=== PATIENT | female | born 1985 | race Caucasian/White ===

== ENCOUNTER 2021-02-08 12:32 | Emergency (ER) | payer SELFPAY ==
--- OUTSIDE RECORDS SUMMARY | 2021-02-08 12:35 | XMS REPORT | Continuity of Care Document ---
:1985 Author Organization [facility] t Address [address] [place] [address] Care Team Providers Name Role Phone Neftaly REYES Attending Clinician Payers Payer Name Policy Type Policy Number Effective Date Expiration Date S ource Problems Condition Condition Condition Status Onset Resolution Last Treating Co mments Source Name Details Category Date Date Treatment Clinician Date Back pain Back pain Disease Active Nelson ris 3-04 Health 00:00: 00 Weight Weight Disease Active Maria loss loss 3-04 Health 00:00: 00 FOOT Diagnosis Active 2012-03-18 Mem oria INJURY 5-26 11:14:00 l FOOT 01:00: Leobardo INJURY 00 Active 03/09/2012 [facility] TOOTH PAIN Diagnosis Active 2010-102012-05-27 Memoria 2-16 15:43:00 l TOOTH 12:00: [place] PAIN 00 Active 09/29/2011 [facility] D&C - Problem Active 2012-03-11 Memor ia Dilatation 08:52:33 l and D&C - [place] curettage Dilatation and curettage Active Problem 03/11/2012 [facility] Vaginal Problem Active 2012-03-11 Jairo [place] bleeding 08:52:33 l Vaginal [place] bleeding Active Problem 03/11/2012 [facility] Allergies, Adverse Reactions, Alerts Allergy Allergy Status Severity Reaction(s) Onset Inactive Treating Comm ents Source Name Type Date Date Clinician No Known DA Active [facility] Allergie 7-12 Clear s 00:00: Storm 00 [facility] Social History Social Habit Start Date Stop Date Quantity Comments Source History of tobacco Cigarette Smoker [facility] use Sex Assigned At [facility] alth Cigarettes smoked 2014-12-16 2014-12-16 [facility] current (pack per 00:00:00 00:00:00 day) - Reported Alcohol intake 2014-12-16 2014-12-16 Current drinker of [employer] 00:00:00 00:00:00 alcohol (finding) Alcohol Comment 2014-12-16 2014-12-16 occasional [facility] 00:00:00 00:00:00 Smoking Status Start Date Stop Date Source Current every day smoker 2014-12-16 00:00:00 [facility] Medications Ordered Filled Start Stop Current Ordering Indication Dosage Frequency Signature Comments Components Source Medication Medication Date Date Medication? Clinician (SIG) Name Name [place] 5/325 Yes George 1-2 tab, Memoria oral tablet - Michael Carnes PO, Q6H, l 07:47: PRN, 20 [place] 49 tab, for pain, Substituti on Allowed, Maintenanc e, TAB naproxen Yes George 500 mg, 1 Me moria 500 mg oral 03-09 Michael Carnes tab, PO, l tablet 07:47: BID, PRN, Freddy n 41 20 tab, for pain, Substituti on Allowed, with food, TABwith food acetaminoph No George 1 tab, Me moria en-hydrocod 03-09 Micheal Carnes Route: PO, l one 325 07:16: ONCE, [place] mg-5 mg 00 STAT, oral tablet Start date: 03/09/12 2:16:00, Stop date: 03/09/12 2:16:00 [place] 5/325 2010-10 Yes Nadim B 1-2 tab, Memoria oral tablet 2-19 Rastafarian PO, Q4-6H, l 04:54: PRN, 15 [place] 22 tab, Pain, Substituti on Allowed, Maintenanc e penicillin 2010-10 Yes Nadim B 500 mg, 1 Memoria V potassium 2-19 Rastafarian tab, PO, l 500 mg oral 04:52: BID, 14 Her bronson tablet 20 tab, Substituti on Allowed Vital Signs Vital Name Observation Time Observation Value Comments Source Height 2012-03-09 06:53:00 162.56 cm [facility] [place] Weight 2012-03-09 06:53:00 [facility] Temperature Oral (F) 2011-10-02 05:06:00 98.9 F [facility] [place] Respitory Rate 2011-10-02 05:06:00 Memori al [place] Systolic (mm Hg) 2011-10-02 05:06:00 Jairo rial [place] Diastolic (mm Hg) 2011-10-02 05:06:00 Mem orial [place] Heart Rate 2011-10-02 05:06:00 [facility] [place] Height 2011-10-02 03:33:00 162.56 cm [facility] [place] Weight 2011-10-02 03:33:00 [facility] [place] Temperature Oral (F) 2011-10-02 03:33:00 98.9 F [facility] [place] Respitory Rate 2011-10-02 03:33:00 Memori al [place] Heart Rate 2011-10-02 03:33:00 [facility] [place] Diastolic (mm Hg) 2011-10-02 03:33:00 Mem orial [place] Systolic (mm Hg) 2011-10-02 03:33:00 Jairo rial [place] Procedures This patient has no known procedures. Plan of Care Planned Activity Planned Date Details Comments Source Future Scheduled Test 2021-07-15 00:00:00 IMM Influenza [facility] Seasonal Jul to December (>/= 19 yrs) [code = IMM Influenza Seasonal Jul to December (>/= 19 yrs)] Future Scheduled Test 2016-02-11 00:00:00 Screening for [facility] malignant neoplasm of cervix (procedure) [code = 125488891] Future Scheduled Test 2016-02-11 00:00:00 Screening for [facility] malignant neoplasm of cervix (procedure) [code = 486222985] Future Scheduled Test 2002 00:00:00 COVID-19 Vaccine (1) [facility] [code = COVID-19 Vaccine (1)] Encounters Start End Encounter Admission Attending Care Care Encounter Source Date/Time Date/Time Type Type Clinicians Facility Department ID 2019-06-24 2019-06-24 Emergency [facility] [id number] 14:08:42 19:14:00 [facility] [id number] [facility] [id number] [facility] [phone] [address] ([facility]) Results Test Description Test Time Test Comments Results Result [facility] e Comments - CT C-SPINE W/O 2019-11-29 Name: MANDA SILVESTRE CONT 23:29:00 [facility] [place] : 1985 Age/S: 34 / F [address] [place] [address] Unit #: [id number] Loc: [place] [address] Phys: Laura Bedolla Acct: [id number] Dis Date: Status: REG ER PHONE #: [phone] Exam Date: 11/29/20192258 FAX #: [phone] Reason: fall down 12 steps, head injury, +EtOH EXAMS: CPT CODE: [id number] CT C-SPINE W/O CONT 11352 CT cervical spine without contrast dated 11/29/2019 INDICATION: Posttraumatic pain. Fell down 12 steps. COMPARISON: None. TECHNIQUE: A CT of the cervical spine was performed using thin slice noncontrast axial images with subsequent sagittal and coronal reconstruction. CT imaging performed at this location utilizes radiation dose optimization techniques which include one or more of the followin) Automated exposure control; 2) Adjustment of mA and/or kV; 3) Use of iterative reconstructive technique. CT radiation dose DLP (mGy-cm): 256. FINDINGS: The CT images of the cervical spine demonstrate no evidence of acute cervical vertebral fracture. Cervical alignment, vertebral body height and intervertebral disc space height are maintained. No significant central canal or foraminal narrowing is identified. There is no evidence of cervical cord compression. No significant prevertebral soft tissue swelling or paravertebral hematoma formation is identified. IMPRESSION: 1. No CT evidence of acute cervical vertebral fracture or malalignment. SL: 131 at 2329 Reported and signed by: Clif Ji M.D. CC: Laura JAIME Technologist:RT Augusto(R)(CT) CTDI: DLP: Trnscb Date/Time: 11/29/2019 (6889) t.SDR.DMM Orig Print D/T: S: 11/29/2019 (9740) PAGE 1 Signed Report - CT HEAD/BRAIN 2019-11-29 Name: MANDA SILVESTRE W/O CONT 23:26:00 [facility] [place] : 1985 Age/S: 34 / F [address] [place] [address] Unit #: [id number] Loc: [place] [address] Phys: Laura Bedolla Acct: [id number] Dis Date: Status: REG ER PHONE #: [phone] Exam Date: 11/29/20195 FAX #: [phone] Reason: fall down 12 steps, head injury, +EtOH EXAMS: CPT CODE: [id number] CT HEAD/BRAIN W/O CONT 57553 CT HEAD WITHOUT CONTRAST DATED 11/29/2019. INDICATION: Posttraumatic pain. Fall down 12 steps with head injury. COMPARISON: CT head dated 06/07/2009. A CT of the head was performed using thin slice noncontrast axial images with subsequent sagittal and coronal reconstruction. CT imaging performed at this location utilizes radiation dose optimization techniques which include one or more of the followin) Automated exposure control; 2) Adjustment of mA and/or kV; 3) Use of iterative reconstructive technique. CT radiation dose DLP (mGy-cm): 419. FINDINGS: Examination of the intracranial structures reveals no acute abnormal areas of increased or decreased density. Fisher-white differentiation appears preserved. The ventricular system is normal in size and configuration without midline shift. No intra or extra-axial masses or fluid collections are identified. There is no CT evidence of acute intracranial hemorrhage. No acute CT abnormalities of the calvarium are detected. Evidence of a laceration of the right parietal scalp is identified and note is made of soft tissue swelling left posterior parietal scalp. There is no evidence of underlying skull fracture. The left maxillary sinus is completely opacified and expanded with medial displacement and thinning of the medial maxillary sinus wall. The remainder of the paranasal sinuses and mastoid sinuses appear clear of acute disease. Chronic mucosal inflammatory changes are noted in the left ethmoid sinus. IMPRESSION: 1. No acute intracranial abnormalities are detected. There is no CT evidence of acute intracranial ischemia, acute intracranial hemorrhage or intracranial mass. 2. Complete opacification and expansion of the left maxillary sinus is new when compared to the prior CT of 06/07/2009 and is concerning for mucocele. SL: 131 PAGE 1 Signed Report (CONTINUED) Name: MANDA SILVESTRE [facility] [place] : 1985 Age/S: 34 / F [address] [place] [address] Bl Unit #: [id number] Loc: [place] [address] Phys: Laura Bedolla Acct: [id number] Dis Date: Status: REG ER PHONE #: [phone] Exam Date: 11/29/2019 2259 FAX #: [phone] Reason: fall down 12 steps, head injury, +EtOH EXAMS: CPT CODE: [id number] CT HEAD/BRAIN W/O CONT 90505 <Continued> at 2326 Reported and signed by: Clif Ji M.D. CC: Laura JAIME Technologist:oRberto Adler, RT(R)(CT) CTDI: DLP: Trnscb Date/Time: 11/29/2019 (2325) t.SDR.DMM Orig Print D/T: S: 11/29/2019 (2328) PAGE 2 Signed Report TROPONIN-I 2019-11-12 17:17:00 Test Item Value Reference Range Interpretation Comme nts TROPONIN-I (test code = < 0.015 ng/mL 0.000-0.045 N Neg ative: <= 0.045 TROPI) Positive: >= 0.046 Correlation wit h serial results, other cardiac m arkers andclinical findings is nec essary to determine the clinicalsignifi cance of this result. Results using different methodologies s hould not be comparedto one another as quantitative re sults may vary by method. - XR CHEST 2 [id number] 17:02:00 FAX: Isidra Horn NP [phone] [place]: St: PRE [facility] [place] [facility] 1985 Age/S: 34/F [address] [place] [address] Unit#: [id number] Loc: [place] [address] Phys: Isidra Horn NP Acct: [id number] Dis Date: Status: PRE ER PHONE #: [phone] Exam Date: 11/12/2019 1654 FAX #: [phone] Reason: chest pain EXAMS: CPT CODE: [id number] XR CHEST 2 V 54157 Clinical Indication: Chest pain. Comparison: 08/26/2018. Impression: Chest, 2 views. Lungs are clear. No consolidation, pleural effusion, or pneumothorax. Cardiomediastinal silhouette is unremarkable. No acute osseous abnormality. SL: [id number] at 1702 Reported and signed by: Mitch Gallo M.D. CC: Isidra Horn NP Technologist: RT Tanvi(Sergio) Trnscrd Date/Time/By: 11/12/2019 (1701) : By: [email or web address] Orig Print D/T: S: 11/12/2019 (1704) PAGE 1 Signed Report- CT ABD PELVIS W/O [id number] 23:02:00 Name: MANDA SILVESTRE [facility] [place] : 1985 Age/S: 34 / F [address] [place] [address] Unit #: [id number] Loc: [place], [place] Phys: Noel Hudson MD Acct: [id number] Dis Date: Status: REG ER PHONE #: [phone] Exam Date: 10/23/2019 2245 FAX #: [phone] Reason: left flank pain, evaluate for kidney stones EXAMS: CPTCODE: [id number] CT ABD PELVIS W/O CONT 23485 STUDY: - CT ABD PELVIS W/O CONT 10/23/2019 8:51 PM Ordering Physician: Noel Hudson MD Patient Name: MANDA SILVESTRE MR: [id number] : 1985; Age: 34 years y/o Female Clinical Indication: left flank pain, evaluate for kidney stones Comparison: 06/25/2019 TECHNIQUE: Multiple contiguous noncontrast transaxial CT images were obtained through the abdomen and pelvis. Sagittal and coronal reformatted images were prepared. CT imaging performed at this location utilizes radiation dose optimization techniques which include one or more of the following: -Automated exposure control -Adjustment of the mA and/or kV according to patient size -Use of iterative reconstruction technique CT Radiation Dose DLP: 509.22 mGy-cm CT ABDOMEN AND PELVIS WITHOUT CONTRAST: VISUALIZED LUNG BASES: No significant abnormality. BOWEL GAS: Mild constipation. APPENDIX: The appendix is not identified with certainty, but no pericecal inflammation is appreciated. STOMACH: Normal for degree of distention. PERITONEUM AND MESENTERY: Free Air: No evidence of pneumoperitoneum. Free Fluid: No evidence of significant free fluid, loculated fluid, peripherally enhancing abscess, or hemorrhage. Mesenteric and peritoneal fat: Normal without focal lesion or inflammation. LYMPH NODES: Scattered subcentimeter central mesenteric and retroperitoneal lymph nodes without lymphadenopathy or mass. VASCULAR: Abdominal Aorta: Normal caliber nonenhanced abdominal aorta. PAGE 1 Signed Report (CONTINUED) Name: MANDA SILVESTRE [facility] : 1985 Age/S: 34 / F [address] [place] [address] Unit #: [id number] Loc: [place] [address] Phys: Noel Hudson MD Acct: [id number] Dis Date: Status: REG ER PHONE #: [phone] Exam Date: 10/23/2019 2245 FAX #: [phone] Reason: left flank pain, evaluate for kidney stones EXAMS: CPT CODE: [id number] CT ABD PELVIS W/O CONT 91446 <Continued> IVC: Normal caliber nonenhanced. ABDOMINAL ORGANS: Liver: Normal nonenhanced without discrete lesion. Gallbladder: Contracted and mildly appropriately thick-walled without calcified gallstones or inflammation. Biliary Tree: Normal without dilatation. Kidneys: Normal size nonenhanced kidneys with punctate nonobstructingcalculi versus artifact in both kidneys. No ureterolithiasis, hydronephrosis, or suspicious focal lesion in either kidney. Adrenal Glands: Normal nonenhanced without discrete lesion . Pancreas: Normal nonenhanced without discrete lesion. Spleen: Normal nonenhanced without discrete lesion. PELVIC ORGANS: Urinary bladder: Under distended and thick-walled associated with mild adjacent stranding. Reproductive organs: Normal nonenhanced uterus and adnexa. SOFT TISSUES: Small fat-containing periumbilical hernia and mild rectus dehiscence. Small bilateral inguinal lymph nodes. OSSEOUS STRUCTURES: No fracture, dislocation, or suspicious focal osseous lesion. IMPRESSION: Punctate nonobstructing bilateral nephrolithiasis versus artifact. No ureterolithiasis, hydronephrosis, inflammation, or focal renal lesion. Under distended mildly thick-walled urinary bladder with mild adjacent stranding. Clinical correlation is required to exclude cystitis. PAGE 2 Signed Report (CONTINUED) Name: MANDA SILVESTRE [facility] : 1985 Age/S: 34 / F [address] [place] [address] Unit #: [id number] Loc: [place] [address] Phys: Noel Hudson MD Acct: [id number] Dis Date: Status: REG ER PHONE #: [phone] Exam Date: 10/23/2019 2245 FAX #: [phone] Reason: left flank pain, evaluate for kidney stones EXAMS: CPT CODE: [id number] CT ABD PELVIS W/O CONT 12242 <Continued> Small fat-containing periumbilical hernia and mild rectus dehiscence. Mild constipation.SL: TPAINTER-H at 2302 Reported and signed by: Dylan Mcintyre M.D. CC: Noel Hudson MD Technologist:Shantell Nuñez RT(R)(CT) CTDI: DLP: Trnscb Date/Time: 10/23/2019 (2301) [email or web address] Orig Print D/T: S: 10/23/2019 (2304) PAGE 3 Signed ReportCOMPREHENSIVE METABOLIC [id number] 22:25:00 Test Item Value Reference Range Interpretation Comments SODIUM (test code = NA) 139 mEq/L 134-147 N POTASSIUM (test code = 3.7 mEq/L 3.4-5.0 N K) CHLORIDE (test code = 105 mEq/L 100-108 N CL) CARBON DIOXIDE (test 30 mEq/L 21-33 N code = CO2) ANION GAP (test code = 8 0-20 N GAP) GLUCOSE (test code = 91 mg/dL 70-110 N GLU) BLOOD UREA NITROGEN 13 mg/dL 7-18 N (test code = BUN) GLOMERULAR FILTRATION 72.1 105-110 L Units of measure = RATE (test code = GFR) ml/mi n/1.73 m2 CREATININE (test code = 0.9 mg/dL 0.6-1.3 N CREAT) TOTAL PROTEIN (test 7.4 g/dL 6.4-8.2 N code = PROT) ALBUMIN (test code = 3.60 g/dL 3.4-5.0 N ALB) CALCIUM (test code = 9.5 mg/dL 8.0-10.5 N CA) BILIRUBIN TOTAL (test 0.2 MG/DL <1.5 N code = BILT) SGOT/AST (test code = 17 IUnit/L 15-37 N AST) SGPT/ALT (test code = 31 IUnit/L 15-65 N ALT) ALKALINE PHOSPHATASE 53 IUnit/L 20-125 N TOTAL (test code = ALKP) [id number] 22:25:00 Test Item Value Reference Range Interpretation Comments LIPASE (test code = LIP) 160 IUnit/L 73-393 N HCG SERUM [id number] 22:25:00 Test Item Value Reference Range Interpretation Comments HCG SERUM QUAL (test code = SERUM NEGATIVE NEGATIVE HCGQL) COMPREHENSIVE METABOLIC [id number] 22:20:00 Test Item Value Reference Range Interpretation Comments SODIUM (test code = NA) 139 mEq/L 134-147 N POTASSIUM (test code = K) 3.7 mEq/L 3.4-5.0 N CHLORIDE (test code = CL) 105 mEq/L 100-108 N CARBON DIOXIDE (test code = CO2) 30 mEq/L 21-33 N ANION GAP (test code = GAP) 8 0-20 N GLUCOSE (test code = GLU) 91 mg/dL 70-110 N BLOOD UREA NITROGEN (test code = 13 mg/dL 7-18 N BUN) GLOMERULAR FILTRATION RATE (test 105-110 code = GFR) CREATININE (test code = CREAT) mg/dL 0.6-1.3 TOTAL PROTEIN (test code = PROT) g/dL 6.4-8.2 ALBUMIN (test code = ALB) g/dL 3.4-5.0 CALCIUM (test code = CA) 9.5 mg/dL 8.0-10.5 N BILIRUBIN TOTAL (test code = BILT) MG/DL <1.5 SGOT/AST (test code = AST) IUnit/L 15-37 SGPT/ALT (test code = ALT) IUnit/L 15-65 ALKALINE PHOSPHATASE TOTAL (test IUnit/L 20-125 code = ALKP) [id number] 22:20:00 Test Item Value Reference Range Interpretation Comments LIPASE (test code = LIP) 160 IUnit/L 73-393 N HCG SERUM [id number] 22:20:00 Test Item Value Reference Range Interpretation Comments HCG SERUM QUAL (test code = SERUM NEGATIVE NEGATIVE HCGQL) COMPREHENSIVE METABOLIC [id number] 22:17:00 Test Item Value Reference Range Interpretation Comments SODIUM (test code = NA) mEq/L 134-147 POTASSIUM (test code = K) mEq/L 3.4-5.0 CHLORIDE (test code = CL) mEq/L 100-108 CARBON DIOXIDE (test code = CO2) mEq/L 21-33 ANION GAP (test code = GAP) 0-20 GLUCOSE (test code = GLU) mg/dL 70-110 BLOOD UREA NITROGEN (test code = mg/dL 7-18 BUN) GLOMERULAR FILTRATION RATE (test 105-110 code = GFR) CREATININE (test code = CREAT) mg/dL 0.6-1.3 TOTAL PROTEIN (test code = PROT) g/dL 6.4-8.2 ALBUMIN (test code = ALB) g/dL 3.4-5.0 CALCIUM (test code = CA) mg/dL 8.0-10.5 BILIRUBIN TOTAL (test code = BILT) MG/DL <1.5 SGOT/AST (test code = AST) IUnit/L 15-37 SGPT/ALT (test code = ALT) IUnit/L 15-65 ALKALINE PHOSPHATASE TOTAL (test IUnit/L 20-125 code = ALKP) [id number] 22:17:00 Test Item Value Reference Range Interpretation Comments LIPASE (test code = LIP) IUnit/L 73-393 HCG SERUM [id number] 22:17:00 Test Item Value Reference Range Interpretation Comments HCG SERUM QUAL (test code = SERUM NEGATIVE NEGATIVE HCGQL) CBC W/AUTO [id number] 22:11:00 Test Item Value Reference Range Interpretation Comments WHITE BLOOD CELL (test code = 9.80 x10 3/uL 4.5-11.0 N WBC) RED BLOOD CELL (test code = 4.34 x10 6/uL 3.54-5.02 N RBC) HEMOGLOBIN (test code = HGB) 11.2 g/dL 11.0-15.0 N HEMATOCRIT (test code = HCT) 37.3 % 33.0-45.0 N MEAN CELL VOLUME (test code = 85.9 fL 81.0-99.0 N MCV) MEAN CELL HGB (test code = MCH) 25.8 pg 27.0-33.0 L MEAN CELL HGB CONCETRATION 30.0 g/dL 33.0-37.0 L (test code = MCHC) RED CELL DISTRIBUTION WIDTH CV 15.6 % 11.5-14.5 H (test code = RDW) RED CELL DISTRIBUTION WIDTH SD 49.1 fL 37.0-54.0 N (test code = RDW-SD) PLATELET COUNT (test code = 172 x10 3/uL 150-400 N PLT) MEAN PLATELET VOLUME (test code 12.1 fL 7.0-9.0 H = MPV) NEUTROPHIL % (test code = NT%) 54.9 % 56.0-77.0 L IMMATURE GRANULOCYTE % (test 0.3 % 0.0-2.0 N code = IG%) LYMPHOCYTE % (test code = LY%) 30.1 % 14.0-32.0 N MONOCYTE % (test code = MO%) 10.0 % 4.8-9.0 H EOSINOPHIL % (test code = EO%) 4.3 % 0.3-3.7 H BASOPHIL % (test code = BA%) 0.4 % 0.0-2.0 N NUCLEATED RBC % (test code = 0.0 % 0-0 N NRBC%) NEUTROPHIL # (test code = NT#) 5.38 x10 3/uL 2.0-7.6 N IMMATURE GRANULOCYTE # (test 0.03 x10 3/uL 0.00-0.03 N code = IG#) LYMPHOCYTE # (test code = LY#) 2.95 x10 3/uL 1.0-3.8 N MONOCYTE # (test code = MO#) 0.98 x10 3/uL 0.1-0.8 H EOSINOPHIL # (test code = EO#) 0.42 x10 3/uL 0.0-0.2 H BASOPHIL # (test code = BA#) 0.04 x10 3/uL 0.0-0.2 N NUCLEATED RBC # (test code = 0.00 x10 3/uL 0.0-0.1 N NRBC#) MANUAL DIFF REQUIRED (test code NO = MDIFF) UA RFLX MICR CULT IF [id number] 21:09:00 Test Item Value Reference Range Interpretation Comments UA COLOR (test code = COLU) YELLOW YEL/STRAW UA APPEARANCE (test code = APPU) CLOUDY CLEAR A UA GLUCOSE DIPSTICK (test code = NEGATIVE NEGATIVE DGLUU) UA BILIRUBIN DIPSTICK (test code NEGATIVE NEGATIVE = BILU) UA KETONE DIPSTICK (test code = NEGATIVE NEGATIVE KETU) UA SPECIFIC GRAVITY (test code = 1.016 1.005-1.030 N SGU) UA BLOOD DIPSTICK (test code = NEGATIVE NEGATIVE ALBERT) UA PH DIPSTICK (test code = ALEYDA) 7.0 5.0-7.0 N UA PROTEIN DIPSTICK (test code = NEGATIVE NEGATIVE PROU) UA UROBILINIOGEN DIPSTICK (test 0.2 mg/dL 0.2-1.0 code = URO) UA NITRITE DIPSTICK (test code = NEGATIVE NEGATIVE CANDIDO) UA LEUKOCYTE ESTERASE DIPSTICK 1+ NEGATIVE A (test code = LEUU) UA WBC (test code = WBCU) >50 WBC/HPF 0-3 A UA RBC (test code = RBCU) 4-10 RBC/HPF 0-3 UA WBC NO REFLEX (test code = >50 WBC/HPF 0-3 A WBCUCL) UA BACTERIA (test code = BACU) TRACE /HPF NONE SEEN UA SQUAMOUS CELLS (test code = 36-50 /HPF NONE SEEN A SQU) UA MUCUS (test code = MUCU) TRACE /LPF NONE SEEN Indication for culture: Flank PainSpecimen Description: CLEAN CATCH- XR L- SPINE 2/3 [id number] 21:33:00 FAX: Inessa Brown MD [phone] [place]: St: PRE Name: MANDA SILVESTRE [facility] : 1985 Age/S: 34/F [address] [place] [address] Unit#: [id number] Loc: [place] [address] Phys: Inessa Luna MD Acct: [id number] Dis Date: Status: PRE ER PHONE #: [phone] Exam Date: 07/15/20192128 FAX #: [phone] Reason: acute pain s/p fall EXAMS: CPT CODE: [id number] XR L-SPINE 2/3 VIEWS 43395 Clinical Indication: acute pain s/p fall; Comparison: 04/02/2019 FINDINGS: AP, lateral, and coned down lateral 3 views of the lumb ar spine demonstrate 5 nonrib-bearing lumbar-type vertebrae. Disk spacing is maintained. No radiographically evident fracture or subluxation. The posterior elements, spinous processes and transverse processes are normal. Paraspinal soft tissues are unremarkable.If there is further concern or neurological abnormalities on clinical exam, CT or MRI of the lumbar spine may be performed for complete assessment. IMPRESSION: No acute fracture or dislocation of the lumbar spine. SL: LANVU-H at 2133 Reported and signed by: Hank Espinosa M.D. CC: Inessa Luna MD Technologist: Joceline Villegas RT(R)(M); Brent Drake RT(R)Trnscrd Date/Time/By: 07/15/2019 (2132) : By: DelfinoLNV Orig Print D/T: S: 07/15/2019 (2135) PAGE 1 Signed Report- XR HIP W/PEL UNI 2+V [id number] 21:32:00 FAX: Inessa Brown MD [phone] [place]: St: PRE Name: MANDA SILVESTRE [facility] : 1985 Age/S: 34/F [address] [place] [address] Unit#: [id number] Loc: [place] [address] Phys: Inessa Luna MD Acct: [id number] Dis Date: Status: PRE ER PHONE #: [phone] Exam Date: 07/15/20192128 FAX #: [phone] Reason: acute pain s/p fall EXAMS: CPT CODE: [id number] XR HIP W/PEL UNI 2+[place] [address] Clinical Indication: acute pain s/p fall; Comparison: None FINDINGS: The 2 views of the left hip show normal alignment without fractures or dislocations. There are no radio-opaque foreign bodies. The acetabulum is unremarkable. The visualized sacroiliac joint and symphysis pubis are unremarkable. If there is further concern, recommend follow-up radiographs or MRI for complete assessment. IMPRESSION: No fracture or dislocation of the left hip. SL: LASHAUNH at 2132 Reported and signed by: Hank Espinosa M.D. CC: Inessa Luna MD Technologist: Joceline Villegas RT(R)(M); Brent Drake RT(R) Trnfltracey Date/Time/By: 07/15/2019 (2131) : By: DelfinoLNV Orig Print D/T: S: 07/15/2019 (2134) PAGE 1 Signed ReportSURGICAL [id number] 09:33:00 RUN DATE: 07/03/19 [place] *LIVE* PAGE 1 RUN TIME: 933 Specimen Inquiry RUN USER: INTERFACE PATIENT: MANDA SILVESTRE LOC: [facility] U #: [id number] AGE/SX: 34/F ROOM: [facility] RE06/26/19REG DR: Jah Mclean MD : 86 BED: 1 DIS: 06/27/19 STATUS: DIS IN TLOC: SPEC #: [id number] RECD: 06/26/19 STATUS: SOUT REQ #: [id number] SUSANNE: 06/26/[address]: Jah Mclean MD ENTERED: 07/01/19 SP TYPE: SURG SPEC OTHR DR: No Primary or Family Physician Self ReferredORDERED: GM LEVEL 4 CODES: [id number] - APPENDIX, NOS COPIES TO: No Primary or Family Physician Self Referred Jah Mclean MD [address] [facility] [address] [place] [address] PROCEDURES: LEVEL 4 (Incomplete) TISSUES: 1. APPENDIX, NOS - Appendix FINAL DIAGNOSIS Appendix: Mucous retention cyst with stenosis of the proximal lumen. GROSS AND MICROSCOPIC GROSS EXAMINATION: Received in formalin labeled appendix is a 7 cm in length 1.1 cm in diameter appendix with external purple granular surface. The margin of the appendix is inked black. The lumen is dilated. Tissue submitted (A.) margin (B)-(E) remainder of appendix. MICROSCOPIC EXAMINATION: Sections of the appendix reveal a flat proliferation of mucinous epithelial cells with atrophy lymphoid tissue surrounding. The margin of excision appears free of the lesion. No invasion is identified within the tissue. The proximal portion of the appendix shows stenosis ofthe lumen. No significant dysplasia is identified. CONTINUED ON NEXT PAGE --RUN DATE: 07/03/19 [facility] *LIVE* PAGE 2 RUN TIME: 933 Specimen Inquiry RUN USER: INTERFACE SPEC #: [id number] PATIENT: MANDA SILVESTRE #[id number] (C ontinued) POST-OP DIAGNOSIS Appendicitis PRE-OP DIAGNOSIS Appendicitis REVIEWED BY: MR Signed SIGNATURE ON FILE John Neal Yovana DONIS 07/03/19 0933 END OF REPORT CBC W/AUTO DIFF 2019-06-27 09:01:00 Test Item Value Reference Range Interpretation Comments WHITE BLOOD CELL (test code = 8.46 x10 3/uL 4.5-11.0 N WBC) RED BLOOD CELL (test code = 3.39 x10 6/uL 3.54-5.02 L RBC) HEMOGLOBIN (test code = HGB) 9.2 g/dL 11.0-15.0 L HEMATOCRIT (test code = HCT) 29.6 % 33.0-45.0 L MEAN CELL VOLUME (test code = 87.3 fL 81.0-99.0 N MCV) MEAN CELL HGB (test code = MCH) 27.1 pg 27.0-33.0 N MEAN CELL HGB CONCETRATION 31.1 g/dL 33.0-37.0 L (test code = MCHC) RED CELL DISTRIBUTION WIDTH CV 15.4 % 11.5-14.5 H (test code = RDW) RED CELL DISTRIBUTION WIDTH SD 49.5 fL 37.0-54.0 N (test code = RDW-SD) PLATELET COUNT (test code = 135 x10 3/uL 150-400 L PLT) MEAN PLATELET VOLUME (test code 13.0 fL 7.0-9.0 H = MPV) NEUTROPHIL % (test code = NT%) 57.4 % 56.0-77.0 N IMMATURE GRANULOCYTE % (test 0.5 % 0.0-2.0 N code = IG%) LYMPHOCYTE % (test code = LY%) 30.5 % 14.0-32.0 N MONOCYTE % (test code = MO%) 9.5 % 4.8-9.0 H EOSINOPHIL % (test code = EO%) 1.7 % 0.3-3.7 N BASOPHIL % (test code = BA%) 0.4 % 0.0-2.0 N NUCLEATED RBC % (test code = 0.0 % 0-0 N NRBC%) NEUTROPHIL # (test code = NT#) 4.87 x10 3/uL 2.0-7.6 N IMMATURE GRANULOCYTE # (test 0.04 x10 3/uL 0.00-0.03 H code = IG#) LYMPHOCYTE # (test code = LY#) 2.58 x10 3/uL 1.0-3.8 N MONOCYTE # (test code = MO#) 0.80 x10 3/uL 0.1-0.8 N EOSINOPHIL # (test code = EO#) 0.14 x10 3/uL 0.0-0.2 N BASOPHIL # (test code = BA#) 0.03 x10 3/uL 0.0-0.2 N NUCLEATED RBC # (test code = 0.00 x10 3/uL 0.0-0.1 N NRBC#) MANUAL DIFF REQUIRED (test code NO = MDIFF) BASIC METABOLIC [id number] 07:59:00 Test Item Value Reference Range Interpretation Comments SODIUM (test code = NA) 140 mEq/L 134-147 N POTASSIUM (test code = 3.7 mEq/L 3.4-5.0 N K) CHLORIDE (test code = 110 mEq/L 100-108 H CL) CARBON DIOXIDE (test 29 mEq/L 21-33 N code = CO2) ANION GAP (test code = 5 0-20 N GAP) GLUCOSE (test code = 101 mg/dL 70-110 N GLU) BLOOD UREA NITROGEN 9 mg/dL 7-18 N (test code = BUN) GLOMERULAR FILTRATION 115.1 105-110 H Units of measure = RATE (test code = GFR) ml/mi n/1.73 m2 CREATININE (test code = 0.6 mg/dL 0.6-1.3 N CREAT) CALCIUM (test code = 9.0 mg/dL 8.0-10.5 N CA) - CT ABD PELVIS [id number] 02:10:00 Name: MANDA SILVESTRE [facility] [place] : 1985 Age/S: 34 / F [address] [place] [address] Unit #: [id number] Loc: [place] [id number] Phys: Zhanna Park IT SYSTEMS ANALYST CONSULTANT Acct: [id number] Dis Date: Status: REG ER PHONE #: [phone] Exam Date: 06/25/2019 0133 FAX #: [phone] Reason: abd pain EXAMS: CPTCODE: [id number] CT ABD PELVIS W/CONT 08678 EXAM: CT, CT ABDOMEN PELVIS W CONTRAST: 06/25/2019, 0132 hours HISTORY: abd pain COMPARISON: None available. TECHNIQUE: Helical imaging was performed from diaphragm throughthe symphysis with coronal and sagittal reconstructions. CT imaging was performed with exposure control parameters to reduce radiation dose. All CT scans at this location are performed using dose optimization techniques as appropriate to perform exam including the following: * Automated exposure control * Adjustment of the mA and /or kV according to patient size(this includes techniques or standardized protocols for targeted exams where dose is matched to indication/reason for exam; extremities or head) * Use of iterative reconstruction technique IV CONTRAST: 100 cc Isovue. GI CONTRAST: YES CT Radiation Dose: DLP = 511.34 mGy-cm FINDINGS: LOWER CHEST: The visualized lung bases are clear. LIVER: Unremarkable. GALLBLADDER: Hyperdense sludge in the gallbladder. INTRAHEPATIC BILE DUCT AND EXTRAHEPATIC BILE DUCT: Unremarkable. PANCREAS: Unremarkable. SPLEEN: Unremarkable. ADRENALS: Unremarkable. KIDNEYS AND URETERS: Unremarkable. STOMACH: Unremarkable. BOWEL: The small bowel loops in the abdomen and pelvis appear unremarkable. Mildly prominent colon with scattered nonspecific air-fluid levels, most likely due to diarrheal condition. No evidence of bowel obstruction APPENDIX: The appendixis dilated measuring up to 10 mm in diameter. Mildly thickened appendiceal wall and mild periappendiceal inflammatory changes. Small right lower flank lymph nodes. Findings suggestive of nonperforated acute appendicitis. PERITONEUM AND RETROPERITONEUM: No ascites or free air. There is no aortic aneurysm or dissection. PAGE 1 Signed Report (CONTINUED) Name: MANDA SILVESTRE [facility] [place] : 1985 Age/S: 34 / F [address] [place] [address] Blvd Unit #: [id number] Loc: [place] [address] Phys: Zhanna Park IT SYSTEMS ANALYST CONSULTANT Acct: [id number] Dis Date: Status: REG ER PHONE #: [phone] Exam Date: 06/25/2019 0133 FAX #: [phone] Reason: abd pain EXAMS: CPT CODE: [id number] CT ABD PELVIS W/CONT 43365 <Continued> LYMPH NODES: Unremarkable. PELVIS:No pelvic mass or adenopathy. Trace free fluid in the pelvis. Anteverted and unremarkable uterus. Ovaries are not well seen. BLADDER: Unremarkable. OSSEOUS STRUCTURES: No ac [place] abnormality seen. SOFT TISSUES: Unremarkable. IMPRESSION: 1. Acute appendicitis. No abscess seen. 2. Mildly prominent colon with scattered nonspecific air-fluid levels, most likely due to diarrheal condition. No evidence of bowel obstruction. SL: ERICA at 0210 Reported and signed by: Andrea Mathis M.D. CC: Meg Ortega DO; Zhanna Park NP Technologist:RT Suly(R)(CT) CTDI: DLP: Trnscb Date/Time: 06/25/2019 (209) [email or web address] Orig Print D/T: S: 06/25/2019 (3) PAGE 2 Signed ReportHCG SERUM [id number] 00:50:00 Test Item Value Reference Range Interpretation Comments HCG SERUM QUAL (test code = SERUM NEGATIVE NEGATIVE HCGQL) PER DELICIA [place] RNURINALYSIS [id number] 23:27:00 Test Item Value Reference Range Interpretation Comments UA COLOR (test code = COLU) YELLOW YEL/STRAW UA APPEARANCE (test code = SL CLOUDY CLEAR APPU) UA GLUCOSE DIPSTICK (test code NEGATIVE NEGATIVE = DGLUU) UA BILIRUBIN DIPSTICK (test NEGATIVE NEGATIVE code = BILU) UA KETONE DIPSTICK (test code NEGATIVE NEGATIVE = KETU) UA SPECIFIC GRAVITY (test code 1.024 1.005-1.030 N = SGU) UA BLOOD DIPSTICK (test code = NEGATIVE NEGATIVE ALBERT) UA PH DIPSTICK (test code = 6.0 5.0-7.0 N ALEYDA) UA PROTEIN DIPSTICK (test code NEGATIVE NEGATIVE = PROU) UA UROBILINIOGEN DIPSTICK 0.2 mg/dL 0.2-1.0 (test code = URO) UA NITRITE DIPSTICK (test code NEGATIVE NEGATIVE = CANDIDO) UA LEUKOCYTE ESTERASE DIPSTICK NEGATIVE NEGATIVE (test code = LEUU) UA RBC (test code = RBCU) 0-3 RBC/HPF 0-3 UA WBC NO REFLEX (test code = 0-3 WBC/HPF 0-3 WBCUCL) UA BACTERIA (test code = BACU) NONE SEEN /HPF NONE SEEN UA SQUAMOUS CELLS (test code = 6-10 /HPF NONE SEEN A SQU) COMPREHENSIVE METABOLIC [id number] 23:11:00 Test Item Value Reference Range Interpretation Comments SODIUM (test code = NA) 138 mEq/L 134-147 N POTASSIUM (test code = 3.7 mEq/L 3.4-5.0 N K) CHLORIDE (test code = 106 mEq/L 100-108 N CL) CARBON DIOXIDE (test 28 mEq/L 21-33 N code = CO2) ANION GAP (test code = 8 0-20 N GAP) GLUCOSE (test code = 90 mg/dL 70-110 N GLU) BLOOD UREA NITROGEN 3 mg/dL 7-18 L (test code = BUN) GLOMERULAR FILTRATION 82.6 105-110 L Units of measure = RATE (test code = GFR) ml/mi n/1.73 m2 CREATININE (test code = 0.8 mg/dL 0.6-1.3 N CREAT) TOTAL PROTEIN (test 7.4 g/dL 6.4-8.2 N code = PROT) ALBUMIN (test code = 3.60 g/dL 3.4-5.0 N ALB) CALCIUM (test code = 9.3 mg/dL 8.0-10.5 N CA) BILIRUBIN TOTAL (test 0.4 MG/DL <1.5 N code = BILT) SGOT/AST (test code = 21 IUnit/L 15-37 N AST) SGPT/ALT (test code = 21 IUnit/L 15-65 N ALT) ALKALINE PHOSPHATASE 66 IUnit/L 20-125 N TOTAL (test code = ALKP) COMPREHENSIVE METABOLIC [id number] 23:06:00 Test Item Value Reference Range Interpretation Comments SODIUM (test code = NA) 138 mEq/L 134-147 N POTASSIUM (test code = K) 3.7 mEq/L 3.4-5.0 N CHLORIDE (test code = CL) 106 mEq/L 100-108 N CARBON DIOXIDE (test code = CO2) 28 mEq/L 21-33 N ANION GAP (test code = GAP) 8 0-20 N GLUCOSE (test code = GLU) 90 mg/dL 70-110 N BLOOD UREA NITROGEN (test code = 3 mg/dL 7-18 L BUN) GLOMERULAR FILTRATION RATE (test 105-110 code = GFR) CREATININE (test code = CREAT) mg/dL 0.6-1.3 TOTAL PROTEIN (test code = PROT) g/dL 6.4-8.2 ALBUMIN (test code = ALB) g/dL 3.4-5.0 CALCIUM (test code = CA) 9.3 mg/dL 8.0-10.5 N BILIRUBIN TOTAL (test code = BILT) MG/DL <1.5 SGOT/AST (test code = AST) IUnit/L 15-37 SGPT/ALT (test code = ALT) IUnit/L 15-65 ALKALINE PHOSPHATASE TOTAL (test IUnit/L 20-125 code = ALKP) CBC W/AUTO [id number] 22:48:00 Test Item Value Reference Range Interpretation Comments WHITE BLOOD CELL (test code = 10.04 x10 3/uL 4.5-11.0 N WBC) RED BLOOD CELL (test code = 4.31 x10 6/uL 3.54-5.02 N RBC) HEMOGLOBIN (test code = HGB) 11.5 g/dL 11.0-15.0 N HEMATOCRIT (test code = HCT) 37.4 % 33.0-45.0 N MEAN CELL VOLUME (test code = 86.8 fL 81.0-99.0 N MCV) MEAN CELL HGB (test code = 26.7 pg 27.0-33.0 L MCH) MEAN CELL HGB CONCETRATION 30.7 g/dL 33.0-37.0 L (test code = MCHC) RED CELL DISTRIBUTION WIDTH CV 15.2 % 11.5-14.5 H (test code = RDW) RED CELL DISTRIBUTION WIDTH SD 48.4 fL 37.0-54.0 N (test code = RDW-SD) PLATELET COUNT (test code = 157 x10 3/uL 150-400 N PLT) MEAN PLATELET VOLUME (test 12.7 fL 7.0-9.0 H code = MPV) NEUTROPHIL % (test code = NT%) 67.8 % 56.0-77.0 N IMMATURE GRANULOCYTE % (test 0.2 % 0.0-2.0 N code = IG%) LYMPHOCYTE % (test code = LY%) 17.3 % 14.0-32.0 N MONOCYTE % (test code = MO%) 10.4 % 4.8-9.0 H EOSINOPHIL % (test code = EO%) 3.8 % 0.3-3.7 H BASOPHIL % (test code = BA%) 0.5 % 0.0-2.0 N NUCLEATED RBC % (test code = 0.0 % 0-0 N NRBC%) NEUTROPHIL # (test code = NT#) 6.81 x10 3/uL 2.0-7.6 N IMMATURE GRANULOCYTE # (test 0.02 x10 3/uL 0.00-0.03 N code = IG#) LYMPHOCYTE # (test code = LY#) 1.74 x10 3/uL 1.0-3.8 N MONOCYTE # (test code = MO#) 1.04 x10 3/uL 0.1-0.8 H EOSINOPHIL # (test code = EO#) 0.38 x10 3/uL 0.0-0.2 H BASOPHIL # (test code = BA#) 0.05 x10 3/uL 0.0-0.2 N NUCLEATED RBC # (test code = 0.00 x10 3/uL 0.0-0.1 N NRBC#) MANUAL DIFF REQUIRED (test NO code = IFF) - XR L-SPINE [id number] 22:46:00 FAX: Noel Forrester MD [phone] [place]: [address]: REG Name: MANDA SILVESTRE [facility] [place] : 1985 Age/S: 34/F [address] [place] [address] Unit#: [id number] Loc: [place] [address] Phys: Noel Hudson MD Acct: [id number] Dis Date: Status: REG ER PHONE #: [phone] Exam Date: 04/02/20192235 FAX #: [phone] Reason: acute back pain EXAMS: CPT CODE: [id number] XR L-SPINE 2/3 VIEWS 57843 Three-view lumbar spine. INDICATION: Acute lumbar back pain, weakness in legs for 3 days. FINDINGS: No prior for comparison. Lumbar vertebral bodies are normal in height and alignment on the lateral view. The disc spaces are preserved in height. Mild anterior spurring seen at T12, L1, L4, and L5. IMPRESSION: Minimal degenerative spurring. Otherwise, normal exam. SL: SG-H at 0923 Reported and signed by: Reggie Laurent M.D. CC: Noel Hudson MD Technologist: RT Miguel(Sergio) Trnscrd Date/Time/By: 04/02/2019 (2249) : By: [email or web address] Orig Print D/T: S: 04/02/2019 (4770) PAGE 1 Signed Report- XR ANKLE 3 + V [id number] 15:56:00 FAX: Rupali Flores NP [place]: St: REG Name: MANDA SILVESTRE [facility] : 1985 Age/S: 33/F [address] [place] [address] Unit#: [id number] Loc: [place] [address] Phys: Rupali Flores IT SYSTEMS ANALYST CONSULTANT Acct: [id number] Dis Date: Status: REG ER PHONE #: [phone] Exam Date: 02/06/2019 1549 FAX #: [phone] Reason: pain s/p stepping in a hole EXAMS: CPT CODE: [id number] XR ANKLE 3 + [place] [address] PROCEDURE: - XR ANKLE 3 + V LT INDICATION: 33 years Female, pain s/p stepping in a hole. COMPARISON: Left ankle x-ray of 04/25/2018. FINDINGS: 3 views left ankle. No acute bony fracture, subluxation or dislocation. Talar dome and ankle mortise intact IMPRESSION: No acute findingsSL: [id number] at 2387 Reported and signed by: Braden Billingsley M.D. CC: Rupali Flores NP Technologist: RT Melania(Sergio) Trnscrd Date/Time/By: 02/06/2019 (0703) : By: [email or web address] Orig Print D/T: S: 02/06/2019 (2819) PAGE 1 Signed Report- XR FOOT 3 + V [id number] 15:55:00 FAX: Rupali Flores NP [place]: St: REG Name: MANDA SILVESTRE [facility] [place] : 1985 Age/S: 33/F [address] [place] [address] Unit#: [id number] Loc: [place] [address] Phys: Rupali Flores IT SYSTEMS ANALYST CONSULTANT Acct: [id number] Dis Date: Status: REG ER PHONE #: [phone] Exam Date: 02/06/2019 1549 FAX #: [phone] Reason: pain s/p stepping in a hole EXAMS: CPT CODE: [id number] XR FOOT 3 + [place] [address] PROCEDURE: - XR FOOT 3 + V LT INDICATION: 33 years Female, pain s/p stepping in a hole. COMPARISON: Left foot x-ray of 04/25/2018 FINDINGS: 3 views left foot. No acute bony fracture, subluxation or dislocation. No radiopaque foreign objects. No soft tissue gas formation or bony destructionIMPRESSION: No acute findings SL: [id number] at 1409 Reported and signed by: Braden Billingsley M.D. CC: Rupali Flores NP Technologist: RT Melania(Sergio) Trnscrd Date/Time/By: 02/06/2019 (4223) : By: [email or web address] Orig Print D/T: S: 02/06/2019 (6433) PAGE 1 Signed Report
[2021-02-08 13:50] LABS: Urine Blood 1+ (Negative); Urine Glucose Negative (Negative); Urine Protein Negative (Negative)
--- NOTE | 2021-02-08 14:26 | RAD REPORT ---
EXAM DESCRIPTION: CTSpine Lumbar Wo Con02/08/2021 2:09 pm CLINICAL HISTORY: Right leg numbness COMPARISON: None TECHNIQUE: Computed axial tomography lumbar spine was obtained with coronal and sagittal reconstruct ion. All CT scans are performed using dose optimization technique as appropriate and may include automated exposure control or mA/KV adjustment according to patient size. FINDINGS: No fracture is seen. No dislocation. Small disc bulge L3-4. The thecal sac measures approximately 9 millimeters. Small central disc herniation is suspected at L4-5. Disc bulge is present. Sac measures approximately 9 millimeters Mild spondylosis L5-S1 IMPRESSION: Negative for a lumbar fracture. Spondylosis L3-4 and L4-5 appear to result in mild central spinal stenosis. There appears to be a small central disc herniation L4-5 Nonemergent MRI lumbar spine recommended for further evaluation
--- NOTE | 2021-02-08 14:39 | ER ---
Nurse's Notes [facility] Name: Kristine Londono Age: 35 yrs Sex: Female : 1985 Arrival Date: 02/08/2021 Time: 12:34 Bed 13 Private MD: Diagnosis: Radiculopathy, lumbar region;Spinal stenosis, lumbar region Presentation: 02/08 13:19 Chief complaint: Patient states: right hip pain that started 2-3 that radiates into em right thigh, reports numbness and tingling that comes and goes, denies trauma. Coronavirus screen: Client denies travel out of the [place] in the last 14 days. Ebola Screen: Patient negative for fever greater than or equal to 101.5 degrees Fahrenheit, and additional compatible Ebola Virus Disease symptoms Patient denies exposure to infectious person. Patient denies travel to an Ebola-affected area in the 21 days before illness onset. No symptoms or risks identified at this time. Initial Sepsis Screen: Does the patient meet any 2 criteria? No. Patient's initial sepsis screen is negative. Does the patient have a suspected source of infection? No. Patient's initial sepsis screen is negative. Risk Assessment: Do you want to hurt yourself or someone else? Patient reports no desire to harm self or others. Onset of symptoms was February 08, 2021. 13:19 Method Of Arrival: Ambulatory em 13:19 Acuity: ISAC 4 em CHARGE HAND: 13:21 LMP 02/01/2021 em Historical: - Allergies: 13:21 No Known Allergies; em - Home Meds: 13:21 None [Active]; em - PMHx: 13:21 None; em - PSHx: 13:21 ; Appendectomy; D \T\ C; em - Immunization history:: Adult Immunizations up to date. - Social history:: Smoking status: Patient denies any tobacco usage or history of. Screenin:38 Abuse screen: Denies threats or abuse. Denies injuries from another. Nutritional tr6 screening: No deficits noted. Tuberculosis screening: No symptoms or risk factors identified. Fall Risk None identified. Assessment: 13:37 General: Appears in no apparent distress. Behavior is calm, cooperative, appropriate tr6 for age. Pain: Complains of pain in c/o right hip pain radiating down right leg Pain radiates to radiates down right leg Pain began gradually. Neuro: No deficits noted. Cardiovascular: No deficits noted. Respiratory: No deficits noted. GI: No deficits noted. : No deficits noted. EENT: No deficits noted. Derm: No deficits noted. Musculoskeletal: Reports weakness in right leg due to pain. 13:51 Reassessment: pt transferred to CT via stretcher. tr6 14:13 Reassessment: pt returned from CT. tr6 15:03 Reassessment: discharge instructions reviewed with pt by AFFIRMATIVE ACTION SPECIALIST. tr6 Vital Signs: 13:19 BP 136 / 85; Pulse 84; Resp 18; Temp 98.9(O); Pulse Ox 100% on R/A; Weight 81.65 kg; em Height 5 ft. 4 in. (162.56 cm); Pain 6/10; 13:19 Body Mass Index 30.90 (81.65 kg, 162.56 cm) em ED Course: 12:34 Patient arrived in ED. am2 13:21 Triage completed. em 13:21 Arm band placed on. em 13:23 Leander Mcintosh PA is PHCP. jr8 13:23 Lionel Robbins MD is Attending Physician. jr8 13:38 No provider procedures requiring assistance completed. tr6 13:39 Patient has correct armband on for positive identification. Bed in low position. Call tr6 light in reach. Side rails up X 1. 14:09 CT Lumbar Spine Wo Con In Process Unspecified. EDMS 14:37 Andres Padilla MD is Referral Physician. jr8 15:03 Patient did not have IV access during this emergency room visit. tr6 Administered Medications: No medications were administered Outcome: 14:38 Discharge ordered by . jr8 15:03 Discharged to home ambulatory. tr6 15:03 Condition: good 15:03 Discharge instructions given to patient. 15:04 Patient left the ED. tr6 Signatures: Dispatcher [employer] Fernie Vora, RN RN Leander Mcintosh PA PA jr8 Eileen Das 2 Raven Cevallos RN RN tr6 Corrections: (The following items were deleted from the chart) 15:03 15:03 IV discontinued, tr6 tr6
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
[2021-02-08 15:15] VITALS: BP 136/85; TEMP 98.9; O2SAT 100
== END 2021-02-08 15:04 | disposition home or self-care (01) ==
LOC: ER 12:32
DX: M54.16 Radiculopathy, lumbar region (principal); M48.061 Spinal stenosis, lumbar region without neurogenic claudication
CPT/HCPCS: 72131; 81003; 99283

== ENCOUNTER 2021-02-16 12:38 | Emergency (ER) | payer OTHER, SELFPAY ==
--- OUTSIDE RECORDS SUMMARY | 2021-02-16 12:41 | XMS REPORT | Continuity of Care Document ---
:1985 Author Organization [facility] t Address [address] [place] [address] Care Team Providers Name Role Phone Neftaly [...] oria INJURY 5-26 11:14:00 l FOOT 01:00: [place] INJURY 00 Active 03/09/2012 [facility] TOOTH PAIN Diagnosis Active 2010-102012-05-27 Memoria 2-16 15:43:00 l TOOTH 12:00: [place] PAIN 00 Active 09/29/2011 [facility] D&C - Problem Active 2012-03-11 [facility] Dilatation 08:52:33 l and D&C - Leobardo curettage Dilatation and curettage Active Problem 03/11/2012 [facility] Vaginal Problem Active 2012-03-11 [place] bleeding 08:52:33 l Vaginal [place]ardo bleeding Active Problem 03/11/2012 [facility] Allergies, Adverse Reactions, Alerts Allergy Allergy Status Severity Reaction(s) Onset Inactive Treating Comm ents Source Name Type Date Date Clinician No Known DA Active [facility] Allergie 7-12 Clear s 00:00: Storm 00 [facility] Social History Social Habit Start Date Stop Date Quantity Comments Source History of tobacco Cigarette Smoker [facility] use Sex Assigned At [facility] alth Cigarettes smoked 2014-12-16 2014-12-16 [facility] current (pack per 00:00:00 00:00:00 day) - Reported Alcohol intake 2014-12-16 2014-12-16 Current drinker of [employer] 00:00:00 00:00:00 alcohol (finding) Alcohol Comment 2014-12-16 2014-12-16 occasional [facility] [facility] alth 00:00:00 00:00:00 Smoking Status Start Date Stop Date Source Current every day smoker 2014-12-16 00:00:00 [facility] Medications Ordered Filled Start Stop Current Ordering Indication Dosage Frequency Signature Comments Components Source Medication Medication Date Date Medication? Clinician (SIG) Name Name [place] 5/325 Yes George 1-2 tab, Memoria oral tablet - Michael Carnes PO, Q6H, l 07:47: PRN, 20 Leobardo 49 tab, for pain, Substituti on Allowed, Maintenanc e, TAB naproxen Yes George 500 mg, 1 Me moria 500 mg oral 03-09 Michael Carnes tab, PO, l tablet 07:47: BID, PRN, Freddy n 41 20 tab, for pain, Substituti on Allowed, with food, TABwith food acetaminoph No George 1 tab, Me moria en-hydrocod 03-09 Michael Carnes Route: PO, l one 325 07:16: ONCE, Leobardo mg-5 mg 00 STAT, oral tablet Start date: 03/09/12 2:16:00, Stop date: 03/09/12 2:16:00 [place] 5/325 2010-10 Yes Nadim B 1-2 tab, [facility]oria oral tablet 2-19 [facility] PO, Q4-6H, l 04:54: PRN, 15 Leobardo 22 tab, Pain, Substituti on Allowed, Maintenanc e penicillin 2010-10 Yes Nadim B 500 mg, 1 Memoria V potassium 2-19 [facility] tab, PO, l 500 mg oral 04:52: BID, 14 Her bronson tablet 20 tab, Substituti on Allowed Vital Signs Vital Name Observation Time Observation Value Comments Source Height 2012-03-09 06:53:00 162.56 cm [facility] [place] Weight 2012-03-09 06:53:00 [facility] [place] Temperature Oral (F) 2011-10-02 05:06:00 98.9 F [facility] [place] Respitory Rate 2011-10-02 05:06:00 Memori al [place] Systolic (mm Hg) 2011-10-02 05:06:00 Jairo rial [place] Diastolic (mm Hg) 2011-10-02 05:06:00 Mem orial [place] Heart Rate 2011-10-02 05:06:00 [facility] [place] Height 2011-10-02 03:33:00 162.56 cm [facility] [place] Weight 2011-10-02 03:33:00 [facility] [place] Temperature Oral (F) 2011-10-02 03:33:00 98.9 F [facility] [place] Respitory Rate 2011-10-02 03:33:00 [facility] al [place] Heart Rate 2011-10-02 03:33:00 [facility] [place] Diastolic (mm Hg) 2011-10-02 03:33:00 Mem orial [place] Systolic (mm Hg) 2011-10-02 03:33:00 Jairo rial [place] Procedures This patient has no known procedures. Plan of Care Planned Activity Planned Date Details Comments Source Future Scheduled Test 2021-07-15 00:00:00 IMM Influenza [facility] Seasonal Jul to December (>/= 19 yrs) [code = IMM Influenza Seasonal Jul to December (>/= 19 yrs)] Future Scheduled Test 2016-02-11 00:00:00 Screening for [facility] malignant neoplasm of cervix (procedure) [code = 059475182] Future Scheduled Test 2016-02-11 00:00:00 Screening for [facility] malignant neoplasm of cervix (procedure) [code = 601727323] Future Scheduled Test 2002 00:00:00 COVID-19 Vaccine (1) [facility] [code = COVID-19 Vaccine (1)] Encounters Start End Encounter Admission Attending Care Care Encounter Source Date/Time Date/Time Type Type Clinicians Facility Department ID 2019-06-24 2019-06-24 Emergency [facility] [id number] 14:08:42 19:14:00 [facility] [id number] [facility] [id number] [facility] [id number] [address] ([facility]) Results Test Description Test Time Test Comments Results Result [facility] e Comments - CT C-SPINE W/O 2019-11-29 Name: MANDA SILVESTRE CONT 23:29:00 [facility] [place] : 1985 Age/S: 34 / F [address] [place] [address] Unit #: [id number] Loc: [place] [address] Phys: Laura Bedolla Acct: [id number] Dis Date: Status: REG ER PHONE #: [phone] Exam Date: 11/29/20192258 FAX #: [phone] Reason: fall down 12 steps, head injury, +EtOH EXAMS: CPT CODE: [id number] CT C-SPINE W/O CONT 95579 CT cervical spine without contrast dated 11/29/2019 [...] Technologist:RT Augusto(R)(CT) CTDI: DLP: Trnscb Date/Time: 11/29/2019 (8319) t.SDR.DMM Orig Print D/T: S: 11/29/2019 (6790) PAGE 1 Signed Report - CT HEAD/BRAIN 2019-11-29 Name: MANDA SILVESTRE W/O CONT 23:26:00 [facility] [place] : 1985 Age/S: 34 / F [address] [place] [address] Unit #: [id number] Loc: [place] [address] Phys: Laura Bedolla Acct: [id number] Dis Date: Status: REG ER PHONE #: [phone] Exam Date: 11/29/20197 FAX #: [phone] Reason: fall down 12 steps, head injury, +EtOH EXAMS: CPT CODE: [id number] CT HEAD/BRAIN W/O CONT 18906 CT HEAD WITHOUT CONTRAST DATED 11/29/2019. INDICATION: [...] 1 Signed Report (CONTINUED) Name: MANDA SILVESTRE [facility] Hung Storm : 1985 Age/S: 34 / F [address] [place] [address] Bl Unit #: [id number] Loc: [place] [address] Phys: Laura Bedolla Acct: [id number] Dis Date: Status: REG ER PHONE #: [phone] Exam Date: 11/29/2019 2259 FAX #: [phone] Reason: fall down 12 steps, head injury, +EtOH EXAMS: CPT CODE: [id number] CT HEAD/BRAIN W/O CONT 16439 <Continued> at 2326 Reported and signed by: Clif Ji M.D. CC: Laura JAIME Technologist:Roberto Adler, RT(R)(CT) CTDI: DLP: Trnscb Date/Time: 11/29/2019 [...] vary by method. - XR CHEST 2 [id number] 17:02:00 FAX: Isidra Horn NP [phone] [place]: St: PRE [facility] 1985 Age/S: 34/F [address] [place] [address] Unit#: [id number] Loc: [place] [address] Phys: Isidra Horn NP Acct: [id number] Dis Date: Status: PRE ER PHONE #: [phone] Exam Date: 11/12/2019 1654 FAX #: [phone] Reason: chest pain EXAMS: CPT CODE: [id number] XR CHEST 2 V 94109 Clinical Indication: Chest pain. Comparison: 08/26/2018. Impression: Chest, 2 views. Lungs are clear. No consolidation, pleural effusion, or pneumothorax. Cardiomediastinal silhouette is unremarkable. No acute osseous abnormality. SL: [id number] at 1702 Reported and signed by: Mitch Gallo M.D. CC: Isidra Horn NP Technologist: RT Tanvi(Sergio) Trnscrd Date/Time/By: 11/12/2019 (1701) : By: [email or web address] Orig Print D/T: S: 11/12/2019 (1704) PAGE 1 Signed Report- CT ABD PELVIS W/O [id number] 23:02:00 Name: MANDA SILVESTRE [facility] [place] : 1985 Age/S: 34 / F [address] [place] [address] Unit #: [id number] Loc: [place], [id number] Phys: Noel Hudson MD Acct: [id number] Dis Date: Status: REG ER PHONE #: [phone] Exam Date: 10/23/2019 2245 FAX #: [phone] Reason: left flank pain, evaluate for kidney stones EXAMS: CPTCODE: [id number] CT ABD PELVIS W/O CONT 88026 STUDY: - CT ABD PELVIS W/O CONT 10/23/2019 8:51 PM Ordering Physician: Noel Hudson MD Patient Name: MANDA SILVESTRE MR: [id number] : 1985; Age: 34 years y/o Female [...] 1 Signed Report (CONTINUED) Name: MANDA SILVESTRE [facility] : 1985 Age/S: 34 / F [address] [place] [address] Unit #: [id number] Loc: [place] [address] Phys: Noel Hudson MD Acct: [id number] Dis Date: Status: REG ER PHONE #: [phone] Exam Date: 10/23/2019 2245 FAX #: [phone] Reason: left flank pain, evaluate for kidney stones EXAMS: CPT CODE: [id number] CT ABD PELVIS W/O CONT 29358 <Continued> IVC: Normal caliber nonenhanced. ABDOMINAL ORGANS: [...] 2 Signed Report (CONTINUED) Name: MANDA SILVESTRE [facility] : 1985 Age/S: 34 / F [address] [place] [address] Unit #: [id number] Loc: [place] [address] Phys: Noel Hudson MD Acct: [id number] Dis Date: Status: REG ER PHONE #: [phone] Exam Date: 10/23/2019 2245 FAX #: [phone] Reason: left flank pain, evaluate for kidney stones EXAMS: CPT CODE: [id number] CT ABD PELVIS W/O CONT 97666 <Continued> Small fat-containing periumbilical hernia and mild rectus dehiscence. Mild constipation.SL: TPAINTER-H at 2302 Reported and signed by: Dylan Mcintyre M.D. CC: Noel Hudson MD Technologist:Shantell Nuñez RT(R)(CT) CTDI: DLP: Trnscb Date/Time: 10/23/2019 (2301) [email or web address] Orig Print D/T: S: 10/23/2019 (2304) PAGE 3 Signed ReportCOMPREHENSIVE METABOLIC [id number] 22:25:00 Test Item Value Reference Range Interpretation [...] 20-125 N TOTAL (test code = ALKP) [id number] 22:25:00 Test Item Value Reference Range Interpretation Comments LIPASE (test code = LIP) 160 IUnit/L 73-393 N HCG SERUM [id number] 22:25:00 Test Item Value Reference Range Interpretation Comments HCG SERUM QUAL (test code = SERUM NEGATIVE NEGATIVE HCGQL) COMPREHENSIVE METABOLIC [id number] 22:20:00 Test Item Value Reference Range Interpretation [...] TOTAL (test IUnit/L 20-125 code = ALKP) [id number] 22:20:00 Test Item Value Reference Range Interpretation Comments LIPASE (test code = LIP) 160 IUnit/L 73-393 N HCG SERUM [id number] 22:20:00 Test Item Value Reference Range Interpretation Comments HCG SERUM QUAL (test code = SERUM NEGATIVE NEGATIVE HCGQL) COMPREHENSIVE METABOLIC [id number] 22:17:00 Test Item Value Reference Range Interpretation [...] TOTAL (test IUnit/L 20-125 code = ALKP) [id number] 22:17:00 Test Item Value Reference Range Interpretation Comments LIPASE (test code = LIP) IUnit/L 73-393 HCG SERUM [id number] 22:17:00 Test Item Value Reference Range Interpretation Comments HCG SERUM QUAL (test code = SERUM NEGATIVE NEGATIVE HCGQL) CBC W/AUTO [id number] 22:11:00 Test Item Value Reference Range Interpretation [...] = MDIFF) UA RFLX MICR CULT IF [id number] 21:09:00 Test Item Value Reference Range Interpretation [...] Description: CLEAN CATCH- XR L- SPINE 2/3 [id number] 21:33:00 FAX: Inessa Brown MD [phone] [place]: St: PRE Name: MANDA SILVESTRE [facility] : 1985 Age/S: 34/F [address] [place] [address] Unit#: [id number] Loc: [place] [address] Phys: Inessa Luna MD Acct: [id number] Dis Date: Status: PRE ER PHONE #: [phone] Exam Date: 07/15/20192128 FAX #: [phone] Reason: acute pain s/p fall EXAMS: CPT CODE: [id number] XR L-SPINE 2/3 VIEWS 83346 Clinical Indication: acute pain s/p fall; Comparison: [...] Signed Report- XR HIP W/PEL UNI 2+V [id number] 21:32:00 FAX: Inessa Brown MD [phone] [place]: St: PRE Name: MANDA SILVESTRE [facility] : 1985 Age/S: 34/F [address] [place] [address] Unit#: [id number] Loc: [place] [address] Phys: Inessa Luna MD Acct: [id number] Dis Date: Status: PRE ER PHONE #: [phone] Exam Date: 07/15/20192128 FAX #: [phone] Reason: acute pain s/p fall EXAMS: CPT CODE: [id number] XR HIP W/PEL UNI 2+[place] [address] Clinical Indication: acute pain s/p fall; Comparison: [...] Technologist: Joceline Villegas RT(R)(M); Brent Drake RT(R) Trnidtracey Date/Time/By: 07/15/2019 (2131) : By: [email or web address] Orig Print D/T: S: 07/15/2019 (2134) PAGE 1 Signed ReportSURGICAL [id number] 09:33:00 RUN DATE: 07/03/19 [facility] *LIVE* PAGE 1 RUN TIME: 933 Specimen Inquiry RUN USER: INTERFACE PATIENT: MANDA SILVESTRE LOC: [facility] U #: [id number] AGE/SX: 34/F ROOM: [facility] RE06/26/19REG DR: Jah Mclean MD : [birth year] BED: 1 DIS: 06/27/19 STATUS: DIS IN TLOC: SPEC #: [id number] RECD: 06/26/19 STATUS: SOUT REQ #: [id number] SUSANNE: 06/26/[address]: Jah Mclean MD ENTERED: 07/01/19 SP TYPE: SURG SPEC OTHR DR: No Primary or Family Physician Self ReferredORDERED: GM LEVEL 4 CODES: [id number] - APPENDIX, NOS COPIES TO: No Primary or Family Physician Self Referred Jah Mclean MD [address] [facility] [address] [place] [address] PROCEDURES: LEVEL 4 (Incomplete) TISSUES: 1. APPENDIX, [...] CONTINUED ON NEXT PAGE --RUN DATE: 07/03/19 [facility] *LIVE* PAGE 2 RUN TIME: 933 Specimen Inquiry RUN USER: INTERFACE SPEC #: [id number] PATIENT: MANDA SILVESTRE #[id number] (C ontinued) POST-OP DIAGNOSIS Appendicitis PRE-OP DIAGNOSIS [...] (test code NO = MDIFF) BASIC METABOLIC [id number] 07:59:00 Test Item Value Reference Range Interpretation [...] 8.0-10.5 N CA) - CT ABD PELVIS [id number] 02:10:00 Name: MANDA SILVESTRE [facility] Hung Storm : 1985 Age/S: 34 / F [address] [place] [address] Unit #: [id number] Loc: [id number] Phys: Zhanna Park [employer] DES[employer] Acct: [id number] Dis Date: Status: REG ER PHONE #: [phone] Exam Date: 06/25/2019 0133 FAX #: [phone] Reason: abd pain EXAMS: CPTCODE: [id number] CT ABD PELVIS W/CONT 43946 EXAM: CT, CT ABDOMEN PELVIS W CONTRAST: [...] 1 Signed Report (CONTINUED) Name: MANDA SILVESTRE [facility] [place] : 1985 Age/S: 34 / F [address] [place] [address] Blvd Unit #: [id number] Loc: [place] [address] Phys: Zhanna Park [employer] Acct: [id number] Dis Date: Status: REG ER PHONE #: [phone] Exam Date: 06/25/2019 0133 FAX #: [phone] Reason: abd pain EXAMS: CPT CODE: [id number] CT ABD PELVIS W/CONT 42195 <Continued> LYMPH NODES: Unremarkable. PELVIS:No pelvic mass or adenopathy. Trace free fluid in the pelvis. Anteverted and unremarkable uterus. Ovaries are not well seen. BLADDER: Unremarkable. OSSEOUS STRUCTURES: No ac bruce abnormality seen. SOFT TISSUES: Unremarkable. IMPRESSION: 1. [...] 06/25/2019 (3) PAGE 2 Signed ReportHCG SERUM [id number] 00:50:00 Test Item Value Reference Range Interpretation Comments HCG SERUM QUAL (test code = SERUM NEGATIVE NEGATIVE HCGQL) PER DELICIA [place] RNURINALYSIS [id number] 23:27:00 Test Item Value Reference Range Interpretation [...] /HPF NONE SEEN A SQU) COMPREHENSIVE METABOLIC [id number] 23:11:00 Test Item Value Reference Range Interpretation [...] TOTAL (test code = ALKP) COMPREHENSIVE METABOLIC [id number] 23:06:00 Test Item Value Reference Range Interpretation [...] IUnit/L 20-125 code = ALKP) CBC W/AUTO [id number] 22:48:00 Test Item Value Reference Range Interpretation [...] NO code = IFF) - XR L-SPINE 11/[id number] 22:46:00 FAX: Noel Forrester MD [phone] [place]: TIO St: REG Name: MANDA SILVESTRE [facility] : 1985 Age/S: 34/F [address] [place] [address] Unit#: [id number] Loc: [place] [address] Phys: Noel Hudson MD Acct: [id number] Dis Date: Status: REG ER PHONE #: [phone] Exam Date: 04/02/20192235 FAX #: [phone] Reason: acute back pain EXAMS: CPT CODE: [id number] XR L-SPINE 2/3 VIEWS 17464 Three-view lumbar spine. INDICATION: Acute lumbar back pain, weakness in legs for 3 days. FINDINGS: No prior for comparison. Lumbar vertebral bodies are normal in height and alignment on the lateral view. The disc spaces are preserved in height. Mild anterior spurring seen at T12, L1, L4, and L5. IMPRESSION: Minimal degenerative spurring. Otherwise, normal exam. SL: SG-H at 7696 Reported and signed by: Reggie Laurent M.D. CC: Noel Hudson MD Technologist: RT Miguel(Sergio) Trnscrd Date/Time/By: 04/02/2019 (2245) : By: [email or web address] Orig Print D/T: S: 04/02/2019 (0939) PAGE 1 Signed Report- XR ANKLE 3 + V [id number] 15:56:00 FAX: Rupali Flores NP [place]: St: REG Name: MANDA SILVESTRE [facility] : 1985 Age/S: 33/F [address] [place] [address] Unit#: [id number] Loc: [place] [address] Phys: Rupali Flores [employer] Acct: [id number] Dis Date: Status: REG ER PHONE #: [phone] Exam Date: 02/06/2019 1549 FAX #: [phone] Reason: pain s/p stepping in a hole EXAMS: CPT CODE: [id number] XR ANKLE 3 + V LT [address] PROCEDURE: - XR ANKLE 3 + V LT INDICATION: 33 years Female, pain s/p stepping in a hole. COMPARISON: Left ankle x-ray of 04/25/2018. FINDINGS: 3 views left ankle. No acute bony fracture, subluxation or dislocation. Talar dome and ankle mortise intact IMPRESSION: No acute findingsSL: [id number] at 1794 Reported and signed by: Braden Billingsley M.D. CC: Rupali Flores NP Technologist: RT Melania(Sergio) Trnscrd Date/Time/By: 02/06/2019 (0795) : By: [email or web address] Orig Print D/T: S: 02/06/2019 (8035) PAGE 1 Signed Report- XR FOOT 3 + V [id number] 15:55:00 FAX: Rupali Flores NP [place]: St: REG Name: MANDA SILVESTRE [facility] [place] : 1985 Age/S: 33/F [address] [place] [address] Unit#: [id number] Loc: [place] [address] Phys: Rupali Flores [employer] Acct: [id number] Dis Date: Status: REG ER PHONE #: [phone] Exam Date: 02/06/2019 1549 FAX #: [phone] Reason: pain s/p stepping in a hole EXAMS: CPT CODE: [id number] XR FOOT 3 + [place] [address] PROCEDURE: - XR FOOT 3 + V LT INDICATION: 33 years Female, pain s/p stepping in a hole. COMPARISON: Left foot x-ray of 04/25/2018 FINDINGS: 3 views left foot. No acute bony fracture, subluxation or dislocation. No radiopaque foreign objects. No soft tissue gas formation or bony destructionIMPRESSION: No acute findings SL: [id number] at 9461 Reported and signed by: Braden Billingsley M.D. CC: Rupali Flores NP Technologist: RT Melania(Sergio) Trnscrd Date/Time/By: 02/06/2019 (7182) : By: [email or web address] Orig Print D/T: S: 02/06/2019 (1385) PAGE 1 Signed Report
[2021-02-16 15:28] LABS: Urine Blood Negative (Negative); Urine Glucose Negative (Negative); Urine Protein Negative (Negative); Urine Specific Gravity 1.015 (1.005-1.030)
--- NOTE | 2021-02-16 15:53 | RAD REPORT ---
EXAM DESCRIPTION: CT - CTHCSPWOC - 02/16/2021 3:39 pm CLINICAL HISTORY: Pain;Numbness/tingling COMPARISON: Thoracic Spine W/o Cont dated 02/16/2021 TECHNIQUE: Axial 5 mm thick images of the head were obtained. Axial 2 mm thick images of the cervic al spine were obtained with sagittal and coronal reconstruction images generated and reviewed. All CT scans are performed using dose optimization technique as appropriate and may include automated exposure control or mA/KV adjustment according to patient size. FINDINGS: No intracranial hemorrhage, mass, edema or acute intracranial finding. No suspicion for ac bruce infarction. No extra-axial fluid collections. Mastoid air cells and paranasal sinuses are clear. No globe or orbit abnormality seen. No abnormal attenuation of the superior sagittal sinus or transve rse sinus Cervical bodies are normal in height. There is reversal of the usual cervical lordosis with the apex at C4. This could be a positioning artifact or secondary to muscle spasm. No disk space narrowing. No fracture or acute bony abnormality. Central canal detail is inherently limited. No paraspinal mass or hematoma. IMPRESSION: Negative CT head examination for acute or significant finding. Negative CT cervical spine examination for acute or significant finding.
--- NOTE | 2021-02-16 16:10 | RAD REPORT ---
EXAM DESCRIPTION: CT - Thoracic Spine W/o Cont - 02/16/2021 3:40 pm CLINICAL HISTORY: PAIN, radiculopathy COMPARISON: None. TECHNIQUE: Axial 3 mm thick images of the thoracic spine were obtained with sagittal and coronal rec onstruction images generated and reviewed. All CT scans are performed using dose optimization technique as appropriate and may include automated exposure control or mA/KV adjustment according to patient size. FINDINGS: Thoracic body height and alignment are normal. No disk space narrowing. No fracture or acu te bony abnormality. No paraspinal mass or hematoma. Central canal detail is inherently limited on CT imaging. IMPRESSION: Negative CT thoracic spine examination.
--- NOTE | 2021-02-16 16:46 | EDPHYS ---
Physician Documentation [facility] Name: Kristine Londono Age: 36 yrs Sex: Female : 1985 Arrival Date: 02/16/2021 Time: 12:40 Bed DIS1 Private MD: ED Physician Everett Zaman HPI: 02/16 15:00 This 36 yrs old Female presents to ER via Ambulatory with complaints of Back cp Pain. 15:00 The patient presents with pain that is acute, with no known mechanism of injury. cp 15:00 The symptoms are located in the thoracic area and lumbar area. Onset: The cp symptoms/episode began/occurred 4 week(s) ago. The pain radiates to the right leg and left leg. 15:00 Associated signs and symptoms: Pertinent positives: tingling of bilateral hands and cp bilateral feet, Pertinent negatives: fever, incontinence, numbness, saddle anesthesia. 15:00 Patient was seen in this ED 02-08-2021 with similar complaints of low back pain. CT of cp lumbar spine was performed at that visit that showed mild spinal stenosis. Patient reports she has not f/u with primary physician or neurosurgery. 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 Flu vaccine is not up to date. - Social history:: Smoking status: Patient reports the use of cigarette tobacco products, smokes one-half pack cigarettes per day. ROS: 15:05 Constitutional: Negative for body aches, chills, fever, poor PO intake. cp 15:05 Eyes: Negative for injury, pain, redness, and discharge. cp 15:05 Back: Positive for pain at rest, pain with movement, Negative for decreased range of cp motion. 15:05 Cardiovascular: Negative for chest pain. cp 15:05 Respiratory: Negative for cough, shortness of breath. 15:05 Abdomen/GI: Negative for abdominal pain, nausea, vomiting, and diarrhea, bowel incontinence. 15:05 : Negative for urinary symptoms, flank pain, bladder incontinence. 15:05 Neuro: Positive for of the right hand, left hand, right foot and left foot, Negative for numbness, weakness, saddle anesthesia. 15:05 All other systems are negative. Exam: 15:10 Constitutional: The patient appears in no acute distress, alert, awake, non-toxic, well cp developed, well nourished. 15:10 Head/Face: Normocephalic, atraumatic. cp 15:10 Eyes: Periorbital structures: appear normal, Conjunctiva: normal, no exudate, no injection, Sclera: no appreciated abnormality, Lids and lashes: appear normal, bilaterally. 15:10 ENT: External ear(s): are unremarkable, Nose: is normal, Posterior pharynx: Airway: no evidence of obstruction, patent. 15:10 Neck: ROM/movement: pain, that is mild, with extension, with flexion, limited range of motion, is not appreciated. 15:10 Chest/axilla: Inspection: normal. 15:10 Cardiovascular: Rate: normal. 15:10 Respiratory: the patient does not display signs of respiratory distress, Respirations: normal, no use of accessory muscles, no retractions. 15:10 Abdomen/GI: Exam negative for discomfort, distension, guarding, Inspection: abdomen appears normal. 15:10 Back: pain, that is mild, of the thoracic area and lumbar area, ROM is painful, with all movement. 15:10 Neuro: Orientation: is normal, Mentation: is normal, Motor: moves all fours, strength is normal, Sensation: no obvious gross deficits, Gait: is steady, at a normal pace, without difficulty. Vital Signs: 12:56 Pulse 94; Resp 16 S; Temp 97.6(TE); Pulse Ox 100% on R/A; Weight 82.1 kg (R); Height 5 ca1 ft. 4 in. (162.56 cm) (R); Pain 8/10; 12:59 BP 117 / 92; ca1 15:28 BP 117 / 92; Pulse 94; Resp 16; Temp 97.6(O); Pulse Ox 100% on R/A; Pain 6/10; ld1 16:26 BP 122 / 94; Pulse 96; Resp 18; Pulse Ox 100% on R/A; ld1 12:56 Body Mass Index 31.07 (82.10 kg, 162.56 cm) ca1 MDM: 14:53 Patient medically screened. cp 15:30 Differential diagnosis: vertebral fracture, sciatica, peripheral neuropathy, cauda cp equina, spinal stenosis. 16:45 Data reviewed: vital signs, nurses notes, radiologic studies, CT scan. cp 16:45 Counseling: I had a detailed discussion with the patient and/or guardian regarding: the cp historical points, exam findings, and any diagnostic results supporting the discharge/admit diagnosis, radiology results, the need for outpatient follow up, a neurosurgeon, to return to the emergency department if symptoms worsen or persist or if there are any questions or concerns that arise at home. 02/16 15:28 Order name: Urine Dipstick-Ancillary; Complete Time: 15:29 EDVA 02/16 15:29 Interpretation: Reviewed. 02/16 15:29 Order name: Urine --Ancillary (enter results) bd 02/16 14:52 Order name: Urine Dipstick-Ancillary (obtain specimen); Complete Time: 15:25 02/16 14:52 Order name: Urine Test (obtain specimen); Complete Time: 15:25 02/16 15:07 Order name: CT Head C Spine; Complete Time: 16:09 02/16 16:31 Interpretation: Reviewed report. 02/16 15:07 Order name: CT Thoracic Spine Wo Cont; Complete Time: 16:30 02/16 16:30 Interpretation: Report reviewed. cp Administered Medications: No medications were administered Disposition: 02/17 09:38 Co-signature as Attending Physician, Everett Zaman MD I agree with the assessment and mitch plan of care. Disposition: 02/16/21 16:45 Discharged to Home. Impression: Cervicalgia, Dorsalgia, Radiculopathy, cervicothoracic region, Radiculopathy, lumbar region, Spinal stenosis, lumbar region. - Condition is Stable. - Discharge Instructions: Back Pain, Adult, Cervical Radiculopathy, Lumbosacral Radiculopathy, Neck Exercises, Back Exercises. - Prescriptions for Lidoderm 5 % Topical adhesive patch,medicated - apply 1 patch by TRANSDERMAL route once daily As needed apply as directed to painful areas of neck and back; 1 box. Tramadol 50 mg Oral Tablet - take 1 tablet by ORAL route every 8 hours as needed; 20 tablet. - Medication Reconciliation Form, Thank You Letter, Antibiotic Education, Prescription Opioid Use, Work release form form. - Follow up: Andres Padilla MD; When: 2 - 3 days; Reason: Recheck today's complaints. - Problem is new. - Symptoms have improved. Signatures: Dispatcher [employer] EDMS Everett Zaman MD MD cha Page, Corey, PA PA cp Jennifer Zacarias RN RN ca1 Lauren Smith RN RN ld1 Corrections: (The following items were deleted from the chart) 02/16 17:02 16:45 02/16/2021 16:45 Discharged to Home. Impression: Cervicalgia; Dorsalgia; ld1 Radiculopathy, cervicothoracic region; Radiculopathy, lumbar region; Spinal stenosis, lumbar region. Condition is Stable. Forms are Medication Reconciliation Form, Thank You Letter, Antibiotic Education, Prescription Opioid Use. Follow up: Andres Padilla; When: 2 - 3 days; Reason: Recheck today's complaints. Problem is new. Symptoms have improved. cp
--- NOTE | 2021-02-16 16:46 | ER ---
Nurse's Notes [facility] Name: Kristine Londono Age: 36 yrs Sex: Female : 1985 Arrival Date: 02/16/2021 Time: 12:40 Bed DIS1 Private MD: Diagnosis: Cervicalgia;Dorsalgia;Radiculopathy, cervicothoracic region;Radiculopathy, lumbar region;Spinal stenosis, lumbar region Presentation: 02/16 12:56 Chief complaint: Patient states: My back pain is getting worse, now been feeling ca1 tingling on all of my limbs. The pain started on the lower back 3 - 4 weeks ago, moved to my hips, now I have numbness on barrington hands and barrington feet. Coronavirus screen: Client denies travel out of the [place] in the last 14 days. At this time, the client does not indicate any symptoms associated with coronavirus-19. Ebola Screen: Patient negative for fever greater than or equal to 101.5 degrees Fahrenheit, and additional compatible Ebola Virus Disease symptoms Patient denies exposure to infectious person. Patient denies travel to an Ebola-affected area in the 21 days before illness onset. No symptoms or risks identified at this time. Initial Sepsis Screen: Does the patient meet any 2 criteria? No. Patient's initial sepsis screen is negative. Does the patient have a suspected source of infection? No. Patient's initial sepsis screen is negative. Risk Assessment: Do you want to hurt yourself or someone else? Patient reports no desire to harm self or others. Onset of symptoms was February 16, 2021. 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 Flu vaccine is not up to date. - Social history:: Smoking status: Patient reports the use of cigarette tobacco products, smokes one-half pack cigarettes per day. Screenin:28 Abuse screen: Denies threats or abuse. Denies injuries from another. Nutritional ld1 screening: No deficits noted. Tuberculosis screening: No symptoms or risk factors identified. Fall Risk None identified. Assessment: 15:28 General: Appears in no apparent distress. comfortable, Behavior is calm, cooperative, ld1 appropriate for age. Pain: Complains of pain in back, right arm and left arm Pain currently is 6 out of 10 on a pain scale. Quality of pain is described as throbbing, numb, Pain began 2-3 days ago. Is continuous. Neuro: Level of Consciousness is awake, alert, obeys commands, Oriented to person, place, time, situation, Appropriate for age. Cardiovascular: Capillary refill < 3 seconds Patient's skin is warm and dry. Respiratory: Airway is patent Respiratory effort is even, unlabored, Respiratory pattern is regular, symmetrical. GI: Abdomen is round non-distended. : Reports burning with urination, since Began two days ago. EENT: No signs and/or symptoms were reported regarding the EENT system. Derm: No signs and/or symptoms reported regarding the dermatologic system. Musculoskeletal: No signs and/or symptoms reported regarding the musculoskeletal system. 16:26 Reassessment: No changes from previously documented assessment. Patient and/or family ld1 updated on plan of care and expected duration. Pain level reassessed. Patient is alert, oriented x 3, equal unlabored respirations, skin warm/dry/pink. Waiting on results, denies concerns at this time. Vital Signs: 12:56 Pulse 94; Resp 16 S; Temp 97.6(TE); Pulse Ox 100% on R/A; Weight 82.1 kg (R); Height 5 ca1 ft. 4 in. (162.56 cm) (R); Pain 8/10; 12:59 BP 117 / 92; ca1 15:28 BP 117 / 92; Pulse 94; Resp 16; Temp 97.6(O); Pulse Ox 100% on R/A; Pain 6/10; ld1 16:26 BP 122 / 94; Pulse 96; Resp 18; Pulse Ox 100% on R/A; ld1 12:56 Body Mass Index 31.07 (82.10 kg, 162.56 cm) ca1 ED Course: 12:40 Patient arrived in ED. as 12:58 Triage completed. ca1 12:59 Arm band placed on right wrist. ca1 14:52 Page, Everett, PA is PHCP. cp 14:52 Everett Zaman MD is Attending Physician. cp 15:24 Lauren Smith, RN is Primary Nurse. ld1 15:28 Patient has correct armband on for positive identification. Call light in reach. Pulse ld1 ox on. NIBP on. 15:28 No provider procedures requiring assistance completed. ld1 15:39 CT Head C Spine In Process Unspecified. EDMS 15:40 CT Thoracic Spine Wo Cont In Process Unspecified. EDMS 16:43 Andres Padilla MD is Referral Physician. cp 16:59 Patient did not have IV access during this emergency room visit. ld1 Administered Medications: No medications were administered Outcome: 16:45 Discharge ordered by MD. cp 16:59 Discharged to home ambulatory. ld1 16:59 Condition: stable 16:59 Discharge instructions given to patient, Instructed on discharge instructions, follow up and referral plans. medication usage, Demonstrated understanding of follow-up care, medications. 17:02 Patient left the ED. ld1 Signatures: Dispatcher [employer] EDSonya Maloney as Everett Crowell PA PA cp Jennifer Zacarias RN RN ca1 Lauren Smith, GREG RN ld1
[2021-02-16 17:07] VITALS: TEMP 97.6; O2SAT 100
[2021-02-16 17:11] VITALS: BP 122/94
[2021-02-16 20:11] LABS: Urine Specific Gravity/Preg 1.015 (1.005-1.030)
== END 2021-02-16 17:02 | disposition home or self-care (01) ==
LOC: ER 12:38
DX: M54.13 Radiculopathy, cervicothoracic region (principal); M54.2 Cervicalgia; M54.16 Radiculopathy, lumbar region; M48.061 Spinal stenosis, lumbar region without neurogenic claudication; F17.210 Nicotine dependence, cigarettes, uncomplicated
CPT/HCPCS: 70450; 72125; 72128; 81003; 81025; 99283

== ENCOUNTER 2021-03-30 13:56 | Emergency (ER) | payer OTHER ==
--- OUTSIDE RECORDS SUMMARY | 2021-03-30 13:59 | XMS REPORT | Continuity of Care Document ---
:1985 Author Organization [facility] t Address [address] [place] [address] Care Team Providers Name Role Phone Vikash NEAL, Y Attending Clinician Payers Payer Name Policy Type [...] FOOT Diagnosis Active 2012-03-18 Mem oria INJURY 5- 11:14:00 l FOOT 01:00: [place] INJURY 00 Active 03/09/2012 [facility] TOOTH PAIN Diagnosis Active 2010-102012-05-27 Memoria 2-16 15:43:00 l TOOTH 12:00: [place] PAIN 00 Active 09/29/2011 [facility] D&C - Problem Active 2012-03-11 Memor ia Dilatation 08:52:33 l and D&C - [place] curettage Dilatation and curettage Active Problem 03/11/2012 [facility] Vaginal Problem Active 2012-03-11 Jairo flordia bleeding 08:52:33 l Vaginal [place] bleeding Active Problem 03/11/2012 [facility] Allergies, Adverse Reactions, Alerts Allergy Allergy Status Severity Reaction(s) Onset Inactive Treating Comm ents Source Name Type Date Date Clinician No Known DA Active [facility] Allergie 12 Clear s 00:00: Storm 00 [facility] Social History Social Habit Start Date Stop Date Quantity Comments Source History of tobacco Cigarette Smoker [facility] use Sex Assigned [facility] [place] [facility] Cigarettes smoked 2014-12-16 2014-12-16 [facility] current (pack per 00:00:00 00:00:00 day) - Reported Alcohol intake 2014-12-16 2014-12-16 Current drinker of [employer] 00:00:00 00:00:00 alcohol (finding) Alcohol Comment 2014-12-16 2014-12-16 occasional [facility] 00:00:00 00:00:00 Smoking Status Start Date Stop Date Source Current every day smoker 2014-12-16 00:00:00 [facility] Medications Ordered Filled Start Stop Current Ordering Indication Dosage Frequency Signature Comments Components Source Medication Medication Date Date Medication? Clinician (SIG) Name Name [place] 5/325 Yes George 1-2 tab, Memoria oral [...] date: 03/09/12 2:16:00, Stop date: 03/09/12 2:16:00 [place] 5/325 2010-10 Yes Nadim B 1-2 tab, Memoria oral tablet 2-19 Rest[facility] PO, Q4-6H, l 04:54: PRN, 15 Le[place]ardo 22 tab, Pain, Substituti on Allowed, Maintenanc e penicillin 2010-10 Yes Nadim B 500 mg, 1 Memoria V potassium 2-19 [place] tab, PO, l 500 mg oral 04:52: BID, 14 Her bronson tablet 20 tab, Substituti on Allowed Vital Signs Vital Name Observation Time Observation Value Comments Source Height 2012-03-09 06:53:00 162.56 cm [facility] Weight 2012-03-09 06:53:00 [facility] Temperature Oral (F) 2011-10-02 05:06:00 98.9 F [facility] Respitory Rate 2011-10-02 05:06:00 Memori al [place] Systolic (mm Hg) 2011-10-02 05:06:00 Jairo rial [place] Diastolic (mm Hg) 2011-10-02 05:06:00 Mem orial [place] Heart Rate 2011-10-02 05:06:00 [facility] [place] Height 2011-10-02 03:33:00 162.56 cm [facility] Weight 2011-10-02 03:33:00 [facility] [place] Temperature Oral (F) 2011-10-02 03:33:00 98.9 F [facility] Respitory Rate 2011-10-02 03:33:00 [facility] al [place] Heart Rate 2011-10-02 03:33:00 [facility] Diastolic (mm Hg) 2011-10-02 03:33:00 Mem orial [place] Systolic (mm Hg) 2011-10-02 03:33:00 Jairo rial [place] Procedures This patient has no known procedures. Plan of Care Planned Activity Planned Date Details Comments Source Future Scheduled Test 2021-07-15 00:00:00 IMM Influenza [facility] Seasonal Jul to December (>/= 19 yrs) [code = IMM Influenza Seasonal Jul to December (>/= 19 yrs)] Future Scheduled Test 2016-02-11 00:00:00 Screening for [facility] malignant neoplasm of cervix (procedure) [code = 146017598] Future Scheduled Test 2016-02-11 00:00:00 Screening for [facility] malignant neoplasm of cervix (procedure) [code = 601473349] Future Scheduled Test 1998 00:00:00 COVID-19 Vaccine (1) [facility] [code = COVID-19 Vaccine (1)] Encounters Start End Encounter Admission Attending Care Care Encounter Source Date/Time Date/Time Type Type Clinicians Facility Department ID 2021-03-03 2021-03-03 Office Andres Suh [id number] 15:30:39 15:56:13 Visit Y Pediatric [id number] s and 4.2.7.2.686 Adult [id number] [facility] Results Test Description Test Time Test Comments Results Result [facility] e Comments - CT C-SPINE W/O 2019-11-29 Name: MANDA SILVESTRE CONT 23:29:00 [facility] [place] : 1985 Age/S: 34 / F [address] [place] [address] Unit #: [id number] Loc: [place] [address] Phys: Laura Bedolla Acct: [id number] Dis Date: Status: REG ER PHONE #: [phone] Exam Date: 11/29/20192258 FAX #: [phone] Reason: fall down 12 steps, head injury, +EtOH EXAMS: CPT CODE: [id number] CT C-SPINE W/O CONT 27787 CT cervical spine without contrast dated 11/29/2019 [...] Technologist:RT Augusto(R)(CT) CTDI: DLP: Trnscb Date/Time: 11/29/2019 (7899) HaiM Orig Print D/T: S: 11/29/2019 (3030) PAGE 1 Signed Report - CT HEAD/BRAIN 2019-11-29 Name: MANDA SILVESTRE W/O CONT 23:26:00 [facility] [place] : 1985 Age/S: 34 / F [address] [place] [address] Unit #: [id number] Loc: [place] [address] Phys: Laura Bedolla Acct: [id number] Dis Date: Status: REG ER PHONE #: [phone] Exam Date: 11/29/20196 FAX #: [phone] Reason: fall down 12 steps, head injury, +EtOH EXAMS: CPT CODE: [id number] CT HEAD/BRAIN W/O CONT 97830 CT HEAD WITHOUT CONTRAST DATED 11/29/2019. INDICATION: [...] 1 Signed Report (CONTINUED) Name: MANDA SILVESTRE [facility] [place] : 1985 Age/S: 34 / F [address] [place] [address] Unit #: [id number] Loc: [place] [address] Phys: Laura Bedolla Acct: [id number] Dis Date: Status: REG ER PHONE #: [phone] Exam Date: 11/29/2019 2259 FAX #: [phone] Reason: fall down 12 steps, head injury, +EtOH EXAMS: CPT CODE: [id number] CT HEAD/BRAIN W/O CONT 53632 <Continued> at 2326 Reported and signed by: [...] vary by method. - XR CHEST 2 [id number] 17:02:00 FAX: Isidra Horn NP [phone] [place]: St: PRE [facility] [place] [facility] 1985 Age/S: 34/F [address] [place] [address] Unit#: [id number] Loc: [place] [address] Phys: Isidra Horn NP Acct: [id number] Dis Date: Status: PRE ER PHONE #: [phone] Exam Date: 11/12/2019 1654 FAX #: [phone] Reason: chest pain EXAMS: CPT CODE: [id number] XR CHEST 2 V [address]109 Clinical Indication: Chest pain. Comparison: 08/26/2018. Impression: Chest, 2 views. Lungs are clear. No consolidation, pleural effusion, or pneumothorax. Cardiomediastinal silhouette is unremarkable. No acute osseous abnormality. SL: [id number] at 1702 Reported and signed by: Mitch Gallo M.D. CC: Isidra Horn NP Technologist: RT Tanvi(Sergio) Trnscrd Date/Time/By: 11/12/2019 (1701) : By: [email or web address] Orig Print D/T: S: 11/12/2019 (1704) PAGE 1 Signed Report- CT ABD PELVIS W/O [id number] 23:02:00 Name: MANDA SILVESTRE [facility] [place] : 1985 Age/S: 34 / F [address] [place] [address] Unit #: [id number] Loc: [place], [id number] Phys: Noel Hudson MD Acct: [id number] Dis Date: Status: REG ER PHONE #: [phone] Exam Date: 10/23/2019 2245 FAX #: [phone] Reason: left flank pain, evaluate for kidney stones EXAMS: CPTCODE: [id number] CT ABD PELVIS W/O CONT 54473 STUDY: - CT ABD PELVIS W/O CONT 10/23/2019 8:51 PM Ordering Physician: Noel Hudson MD Patient Name: MANDA SILVESTRE MR: [id number] : 1985; Age: 34 years y/o Female [...] 1 Signed Report (CONTINUED) Name: MANDA SILVESTRE [facility] : 1985 Age/S: 34 / F [address] [place] [address] Unit #: [id number] Loc: [place] [address] Phys: Noel Hudson MD Acct: [id number] Dis Date: Status: REG ER PHONE #: [phone] Exam Date: 10/23/2019 2245 FAX #: [phone] Reason: left flank pain, evaluate for kidney stones EXAMS: CPT CODE: [id number] CT ABD PELVIS W/O CONT 90826 <Continued> IVC: Normal caliber nonenhanced. ABDOMINAL ORGANS: [...] 2 Signed Report (CONTINUED) Name: MANDA SILVESTRE [facility] : 1985 Age/S: 34 / F [address] [place] [address] Unit #: [id number] Loc: [place] [address] Phys: Noel Hudson MD Acct: [id number] Dis Date: Status: REG ER PHONE #: [phone] Exam Date: 10/23/2019 2245 FAX #: [phone] Reason: left flank pain, evaluate for kidney stones EXAMS: CPT CODE: [id number] CT ABD PELVIS W/O CONT 62920 <Continued> Small fat-containing periumbilical hernia and mild rectus dehiscence. Mild constipation.SL: [id number]-H at 2302 Reported and signed by: Dylan Mcintyre M.D. CC: Noel Hudson MD Technologist:Shantell Nuñez, RT(R)(CT) CTDI: DLP: Trnscb Date/Time: 10/23/2019 (2301) [email or web address] Orig Print D/T: S: 10/23/2019 (2304) PAGE 3 Signed ReportCOMPREHENSIVE METABOLIC [id number] 22:25:00 Test Item Value Reference Range Interpretation [...] 20-125 N TOTAL (test code = ALKP) [id number] 22:25:00 Test Item Value Reference Range Interpretation Comments LIPASE (test code = LIP) 160 IUnit/L 73-393 N HCG SERUM [id number] 22:25:00 Test Item Value Reference Range Interpretation Comments HCG SERUM QUAL (test code = SERUM NEGATIVE NEGATIVE HCGQL) COMPREHENSIVE METABOLIC [id number] 22:20:00 Test Item Value Reference Range Interpretation [...] TOTAL (test IUnit/L 20-125 code = ALKP) [id number] 22:20:00 Test Item Value Reference Range Interpretation Comments LIPASE (test code = LIP) 160 IUnit/L 73-393 N HCG SERUM [id number] 22:20:00 Test Item Value Reference Range Interpretation Comments HCG SERUM QUAL (test code = SERUM NEGATIVE NEGATIVE HCGQL) COMPREHENSIVE METABOLIC [id number] 22:17:00 Test Item Value Reference Range Interpretation [...] TOTAL (test IUnit/L 20-125 code = ALKP) [id number] 22:17:00 Test Item Value Reference Range Interpretation Comments LIPASE (test code = LIP) IUnit/L 73-393 HCG SERUM [id number] 22:17:00 Test Item Value Reference Range Interpretation Comments HCG SERUM QUAL (test code = SERUM NEGATIVE NEGATIVE HCGQL) CBC W/AUTO [id number] 22:11:00 Test Item Value Reference Range Interpretation [...] = MDIFF) UA RFLX MICR CULT IF [id number] 21:09:00 Test Item Value Reference Range Interpretation [...] Description: CLEAN CATCH- XR L- SPINE 2/3 [id number] 21:33:00 FAX: Inessa Brown MD [phone] [place]: St: PRE Name: MANDA SILVESTRE [facility] : 1985 Age/S: 34/F [address] [place] [address] Unit#: [id number] Loc: [place] [address] Phys: Inessa Luna MD Acct: [id number] Dis Date: Status: PRE ER PHONE #: [phone] Exam Date: 07/15/20192128 FAX #: [phone] Reason: acute pain s/p fall EXAMS: CPT CODE: [id number] XR L-SPINE 2/3 VIEWS 69645 Clinical Indication: acute pain s/p fall; Comparison: [...] Inessa Luna MD Technologist: Joceline Villegas RT(R)(M); RT Yovani(R)Trnscrd Date/Time/By: 07/15/2019 (2132) : By: [email or web address] Orig Print D/T: S: 07/15/2019 (2135) PAGE 1 Signed Report- XR HIP W/PEL UNI 2+V [id number] 21:32:00 FAX: Inessa Brown MD [phone] [place]: St: PRE Name: MANDA SILVESTRE [facility] : 1985 Age/S: 34/F [address] [place] [address] Unit#: [id number] Loc: [place] [address] Phys: Inessa Luna MD Acct: [id number] Dis Date: Status: PRE ER PHONE #: [phone] Exam Date: 07/15/20192128 FAX #: [phone] Reason: acute pain s/p fall EXAMS: CPT CODE: [id number] XR HIP W/PEL UNI 2+[place] [address] Clinical Indication: acute pain s/p fall; Comparison: [...] Inessa Luna MD Technologist: Joceline Villegas RT(R)(M); RT Yovani(R) Trnvttracey Date/Time/By: 07/15/2019 (2131) : By: [email or web address] Orig Print D/T: S: 07/15/2019 (2134) PAGE 1 Signed ReportSURGICAL [id number] 09:33:00 RUN DATE: 07/03/19 [place] [facility] *LIVE* PAGE 1 RUN TIME: 933 Specimen Inquiry RUN USER: INTERFACE PATIENT: MANDA SILVESTRE LOC: [facility] U #: [id number] AGE/SX: 34/F ROOM: [facility] RE06/26/19REG DR: Jah Mclean MD : [birth year] BED: 1 DIS: 06/27/19 STATUS: DIS IN TLOC: SPEC #: [id number] RECD: 06/26/19 STATUS: SOUT REQ #: [id number] SUSANNE: 06/26/[address]: Jah Mclean MD ENTERED: 07/01/19 SP TYPE: SURG SPEC OTHR DR: No Primary or Family Physician Self ReferredORDERED: GM LEVEL 4 CODES: [id number] - APPENDIX, NOS COPIES TO: No Primary or Family Physician Self Referred Jah Mclean MD [address] [facility] [address] [place] [address] PROCEDURES: LEVEL 4 (Incomplete) TISSUES: 1. APPENDIX, [...] CONTINUED ON NEXT PAGE --RUN DATE: 07/03/19 [facility] *LIVE* PAGE 2 RUN TIME: 933 Specimen Inquiry RUN USER: INTERFACE SPEC #: [id number] PATIENT: MANDA SILVESTRE #[id number] (C ontinued) POST-OP DIAGNOSIS Appendicitis PRE-OP DIAGNOSIS Appendicitis REVIEWED BY: MR Signed SIGNATURE ON FILE John Neal Yovana DO 07/03/19 0933 END OF REPORT CBC W/AUTO [...] (test code NO = MDIFF) BASIC METABOLIC [id number] 07:59:00 Test Item Value Reference Range Interpretation [...] 8.0-10.5 N CA) - CT ABD PELVIS W/[id number] 02:10:00 Name: MANDA SILVESTRE [facility] [place] : 1985 Age/S: 34 / F [address] [place], [place] [address] Unit #: [id number] Loc: [place] [id number] Phys: Zhanna Park EDUCATION AND TRAINING COORDINATOR Acct: [id number] Dis Date: Status: REG ER PHONE #: [phone] Exam Date: 06/25/2019 0133 FAX #: [phone] Reason: abd pain EXAMS: CPTCODE: [id number] CT ABD PELVIS W/CONT 68578 EXAM: CT, CT ABDOMEN PELVIS W CONTRAST: [...] 1 Signed Report (CONTINUED) Name: MANDA SILVESTRE [facility] [place] : 1985 Age/S: 34 / F [address] [place] [address] Blvd Unit #: [id number] Loc: [place] [address] Phys: Zhanna Park NP Acct: [id number] Dis Date: Status: REG ER PHONE #: [phone] Exam Date: 06/25/2019 0133 FAX #: [phone] Reason: abd pain EXAMS: CPT CODE: [id number] CT ABD PELVIS W/CONT 00583 <Continued> LYMPH NODES: Unremarkable. PELVIS:No pelvic mass or adenopathy. Trace free fluid in the pelvis. Anteverted and unremarkable uterus. Ovaries are not well seen. BLADDER: Unremarkable. OSSEOUS STRUCTURES: No ac ely shoshone abnormality seen. SOFT TISSUES: Unremarkable. IMPRESSION: 1. Acute appendicitis. No abscess seen. 2. Mildly prominent colon with scattered nonspecific air-fluid levels, most likely due to diarrheal condition. No evidence of bowel obstruction. SL: ERICA at 0210 Reported and signed by: Andrea Mathis M.D. CC: Meg Ortega DO; Zhanna Park NP Technologist:Andres Erickson RT(R)(CT) CTDI: DLP: Trnscb Date/Time: 06/25/2019 (209) [email or web address] Orig Print D/T: S: 06/25/2019 (3) PAGE 2 Signed ReportHCG SERUM [id number] 00:50:00 Test Item Value Reference Range Interpretation Comments HCG SERUM QUAL (test code = SERUM NEGATIVE NEGATIVE HCGQL) PER DELICIA [place] RNURINALYSIS [id number] 23:27:00 Test Item Value Reference Range Interpretation [...] /HPF NONE SEEN A SQU) COMPREHENSIVE METABOLIC [id number] 23:11:00 Test Item Value Reference Range Interpretation [...] TOTAL (test code = ALKP) COMPREHENSIVE METABOLIC [id number] 23:06:00 Test Item Value Reference Range Interpretation [...] IUnit/L 20-125 code = ALKP) CBC W/AUTO [id number] 22:48:00 Test Item Value Reference Range Interpretation [...] NO code = IFF) - XR L-SPINE 11/[id number] 22:46:00 FAX: Noel Forrester MD [phone] [place]: TIO St: REG Name: MANDA SILVESTRE [facility] : 1985 Age/S: 34/F [address] [place] [address] Unit#: [id number] Loc: [place] [address] Phys: Noel Hudson MD Acct: [id number] Dis Date: Status: REG ER PHONE #: [phone] Exam Date: 04/02/20196 FAX #: [phone] Reason: acute back pain EXAMS: CPT CODE: [id number] XR L-SPINE 2/3 VIEWS 17120 Three-view lumbar spine. INDICATION: Acute lumbar back pain, weakness in legs for 3 days. FINDINGS: No prior for comparison. Lumbar vertebral bodies are normal in height and alignment on the lateral view. The disc spaces are preserved in height. Mild anterior spurring seen at T12, L1, L4, and L5. IMPRESSION: Minimal degenerative spurring. Otherwise, normal exam. SL: SG-H at 3831 Reported and signed by: Reggie Laurent M.D. CC: Noel Hudson MD Technologist: RT Miguel(Sergio) Trnscrd Date/Time/By: 04/02/2019 (224) : By: [email or web address] Orig Print D/T: S: 04/02/2019 (5944) PAGE 1 Signed Report- XR ANKLE 3 + V [id number] 15:56:00 FAX: Rupali Flores NP [place]: St: REG Name: MANDA SILVESTRE [facility] : 1985 Age/S: 33/F [address] [place] [address] Unit#: [id number] Loc: [place] [address] Phys: Rupali Flores EDUCATION AND TRAINING COORDINATOR Acct: [id number] Dis Date: Status: REG ER PHONE #: [phone] Exam Date: 02/06/2019 1549 FAX #: [phone] Reason: pain s/p stepping in a hole EXAMS: CPT CODE: [id number] XR ANKLE 3 + V LT [address]239 PROCEDURE: - XR ANKLE 3 + V LT INDICATION: 33 years Female, pain s/p stepping in a hole. COMPARISON: Left ankle x-ray of 04/25/2018. FINDINGS: 3 views left ankle. No acute bony fracture, subluxation or dislocation. Talar dome and ankle mortise intact IMPRESSION: No acute findingsSL: [id number] at 2831 Reported and signed by: Braden Billingsley M.D. CC: Rupali Flores NP Technologist: RT Melania(Sergio) Trnscrd Date/Time/By: 02/06/2019 (3151) : By: [email or web address] Orig Print D/T: S: 02/06/2019 (3778) PAGE 1 Signed Report- XR FOOT 3 + V [id number] 15:55:00 FAX: Rupali Flores NP [place]: St: REG Name: MANDA SILVESTRE [facility] [place] : 1985 Age/S: 33/F [address] [place] [address] Unit#: [id number] Loc: [place] [address] Phys: Rupali Flores EDUCATION AND TRAINING COORDINATOR Acct: [id number] Dis Date: Status: REG ER PHONE #: [phone] Exam Date: 02/06/2019 1549 FAX #: [phone] Reason: pain s/p stepping in a hole EXAMS: CPT CODE: [id number] XR FOOT 3 + [place] [address] PROCEDURE: - XR FOOT 3 + V LT INDICATION: 33 years Female, pain s/p stepping in a hole. COMPARISON: Left foot x-ray of 04/25/2018 FINDINGS: 3 views left foot. No acute bony fracture, subluxation or dislocation. No radiopaque foreign objects. No soft tissue gas formation or bony destructionIMPRESSION: No acute findings SL: [id number] at 0159 Reported and signed by: Braden Billingsley M.D. CC: Rupali Flores NP Technologist: RT Melania(Sergio) Trnscrd Date/Time/By: 02/06/2019 (9809) : By: [email or web address] Orig Print D/T: S: 02/06/2019 (7798) PAGE 1 Signed Report
--- NOTE | 2021-03-30 16:57 | RAD REPORT ---
EXAM DESCRIPTION: RAD - Ankle Right 3 View - 03/30/2021 4:16 pm CLINICAL HISTORY: injury Pain and swelling COMPARISON: Wrist Right 3 View dated 03/30/2021 FINDINGS: Mild soft tissue swelling is seen about the right ankle. No acute fracture or dislocation.
--- NOTE | 2021-03-30 16:57 | RAD REPORT ---
EXAM DESCRIPTION: RAD - Wrist Right 3 View - 03/30/2021 4:16 pm CLINICAL HISTORY: PAIN Pain COMPARISON: No comparisons FINDINGS: No bone or joint abnormalities detected.
--- NOTE | 2021-03-30 17:31 | EDPHYS ---
Physician Documentation [facility] Name: Kristine Londono Age: 36 yrs Sex: Female : 1985 Arrival Date: 03/30/2021 Time: 13:59 Bed 30 Private MD: ED Physician Tyrone Torres HPI: 03/30 15:18 This 36 yrs old Female presents to ER via Ambulatory with complaints of Wrist jmm Injury, Ankle Injury. 15:18 The patient or guardian reports injury, pain. Onset: The symptoms/episode jmm began/occurred acutely. Modifying factors: The symptoms are alleviated by nothing, the symptoms are aggravated by nothing. Associated signs and symptoms: Pertinent negatives: decreased sensation distally, fever, nausea, numbness distally, tingling distally, vomiting. This is a 36 year old female with no chronic medical conditions that presents to the ED with complaints of right wrist pain and right ankle pain which occurred while disciplined her daughter. Patient states she also rolled her ankle. . 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 Flu vaccine is up to date. - Social history:: Smoking status: Patient reports the use of cigarette tobacco products, smokes one-half pack cigarettes per day. ROS: 15:18 Constitutional: Negative for fever, chills, and weight loss, Cardiovascular: Negative jmm for chest pain, palpitations, and edema, Respiratory: Negative for shortness of breath, cough, wheezing, and pleuritic chest pain. 15:18 MS/extremity: Positive for injury or acute deformity. 15:18 All other systems are negative. Exam: 15:18 Constitutional: This is a well developed, well nourished patient who is awake, alert, jmm and in no acute distress. Head/Face: atraumatic. Eyes: EOMI, no conjunctival erythema appreciated ENT: Moist Mucus Membranes Neck: Trachea midline, Supple Chest/axilla: Normal chest wall appearance and motion. Cardiovascular: Regular rate and rhythm. No edema appreciated Respiratory: Normal respirations, no respiratory distress appreciated Abdomen/GI: Non distended, soft Back: Normal ROM Skin: General appearance color normal 15:18 Musculoskeletal/extremity: right distal radius ttp, compartments are soft, full radial pulse, < 2 sec dist cap refill, no snuff box tenderness. Right lateral ankle ttp, dorsalis pulse ttp, no pain on palpation of the base of the 5th metatarsal. . 15:18 Skin: Appearance: Color: normal in color. 15:18 Neuro: Orientation: is normal, Mentation: is normal, Memory: is normal. 15:18 Psych: Behavior/mood is pleasant, cooperative. Vital Signs: 14:08 BP 120 / 69; Pulse 74; Resp 17 S; Temp 97.8(TE); Pulse Ox 99% on R/A; Weight 81.65 kg ca1 (R); Height 5 ft. 4 in. (162.56 cm) (R); Pain 7/10; 14:08 Body Mass Index 30.90 (81.65 kg, 162.56 cm) ca1 MDM: 15:18 Patient medically screened. [facility] 17:29 Data reviewed: vital signs, nurses notes. Counseling: I had a detailed discussion with [facility] the patient and/or guardian regarding: the historical points, exam findings, and any diagnostic results supporting the discharge/admit diagnosis, radiology results, the need for outpatient follow up, to return to the emergency department if symptoms worsen or persist or if there are any questions or concerns that arise at home. 03/30 15:20 Order name: Wrist Right 3 View XRAY; Complete Time: 17:00 [facility] 03/30 15:20 Order name: Ankle Right 3 View XRAY; Complete Time: 17:00 [facility] 03/30 17:00 Order name: Rayray wrap-joint: ankle and wrist; Complete Time: 17:19 [facility] Administered Medications: No medications were administered Disposition: 03/31 07:25 Co-signature as Attending Physician, Tyrone Torres MD I agree with the assessment and kdr plan of care. Disposition: 03/30/21 17:30 Discharged to Home. Impression: Other specified sprain of right wrist, Sprain of ankle. - Condition is Stable. - Discharge Instructions: Ankle Sprain, Wrist Sprain. - Prescriptions for Ibuprofen 800 mg Oral Tablet - take 1 tablet by ORAL route every 8 hours As needed take with food; 30 tablet. - Medication Reconciliation Form, Thank You Letter, Antibiotic Education, Prescription Opioid Use form. - Follow up: Drew Hoffman MD; When: 2 - 3 days; Reason: Recheck today's complaints, Continuance of care, Re-evaluation by your physician. Signatures: Dispatcher [employer] EDTyrone Daniels MD MD [facility] Bandar Kenyon PA PA jmm Williams, Irene, RN RN Jennifer Zacarias RN RN ca1 Corrections: (The following items were deleted from the chart) 03/30 17:39 17:30 03/30/2021 17:30 Discharged to Home. Impression: Other specified sprain of right iw wrist; Sprain of ankle. Condition is Stable. Forms are Medication Reconciliation Form, Thank You Letter, Antibiotic Education, Prescription Opioid Use. Follow up: Dr. Drew Hoffman; When: 2 - 3 days; Reason: Recheck today's complaints, Continuance of care, Re-evaluation by your physician. [email or web address]
--- NOTE | 2021-03-30 17:31 | ER ---
Nurse's Notes [facility] Name: Kristine Londono Age: 36 yrs Sex: Female : 1985 Arrival Date: 03/30/2021 Time: 13:59 Bed 30 Private MD: Diagnosis: Other specified sprain of right wrist;Sprain of ankle Presentation: 03/30 14:08 Chief complaint: Patient states: Was grappling and tackling my daughter yesterday when ca1 she had one of her meltdowns. I don't know what happened but I have been hurting on my R wrist, R thumb, swelling on R ankle. Coronavirus screen: Client denies travel out of the [place] in the last 14 days. At this time, the client does not indicate any symptoms associated with coronavirus-19. Ebola Screen: Patient negative for fever greater than or equal to 101.5 degrees Fahrenheit, and additional compatible Ebola Virus Disease symptoms Patient denies exposure to infectious person. Patient denies travel to an Ebola-affected area in the 21 days before illness onset. No symptoms or risks identified at this time. Initial Sepsis Screen: Does the patient meet any 2 criteria? No. Patient's initial sepsis screen is negative. Does the patient have a suspected source of infection? No. Patient's initial sepsis screen is negative. Risk Assessment: Do you want to hurt yourself or someone else? Patient reports no desire to harm self or others. Onset of symptoms was March 30, 2021. 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 Flu vaccine is up to date. - Social history:: Smoking status: Patient reports the use of cigarette tobacco products, smokes one-half pack cigarettes per day. Screenin:38 Abuse screen: Denies threats or abuse. Denies injuries from another. Nutritional iw screening: No deficits noted. Tuberculosis screening: No symptoms or risk factors identified. Fall Risk None identified. Assessment: 15:25 General: Appears in no apparent distress. Behavior is calm, cooperative. Pain: iw Complains of pain in right hand, dorsal aspect of right forearm and right wrist. Pain: Complains of pain in anterior aspect of right ankle. Neuro: Level of Consciousness is awake, alert, obeys commands, Oriented to person, place, time, situation. Derm: Skin is intact, is healthy with good turgor. Musculoskeletal: Range of motion:. Vital Signs: 14:08 BP 120 / 69; Pulse 74; Resp 17 S; Temp 97.8(TE); Pulse Ox 99% on R/A; Weight 81.65 kg ca1 (R); Height 5 ft. 4 in. (162.56 cm) (R); Pain 7/10; 14:08 Body Mass Index 30.90 (81.65 kg, 162.56 cm) ca1 ED Course: 13:59 Patient arrived in ED. as 14:11 Triage completed. ca1 14:11 Arm band placed on right wrist. ca1 15:12 Bandar Kenyon PA is PHCP. jmm 15:12 Tyrone Torres MD is Attending Physician. jmm 15:14 Amanda Gibson, GREG is Primary Nurse. iw 16:16 Wrist Right 3 View XRAY In Process Unspecified. EDMS 16:16 Ankle Right 3 View XRAY In Process Unspecified. EDMS 17:30 Drew Hoffman MD is Referral Physician. jmm 17:38 No provider procedures requiring assistance completed. Patient did not have IV access iw during this emergency room visit. 17:39 Patient has correct armband on for positive identification. iw Administered Medications: No medications were administered Outcome: 17:30 Discharge ordered by . jmm 17:38 Discharged to home ambulatory. iw 17:38 Condition: good 17:38 Discharge instructions given to patient, Instructed on discharge instructions, follow up and referral plans. medication usage, Demonstrated understanding of instructions, follow-up care, medications, Prescriptions given X 1. 17:39 Patient left the ED. iw Signatures: Dispatcher [employer] EDMS Bandar Kenyon PA PA jmm Martinez, Amelia as Amanda Gibson RN RN iw Jennifer Zacarias RN RN ca1
[2021-03-30 17:53] VITALS: BP 120/69; TEMP 97.8; O2SAT 99
== END 2021-03-30 17:39 | disposition home or self-care (01) ==
LOC: ER 13:56
DX: S63.591A Other specified sprain of right wrist, initial encounter (principal); S93.401A Sprain of unspecified ligament of right ankle, initial encounter; X58.XXXA Exposure to other specified factors, initial encounter; F17.210 Nicotine dependence, cigarettes, uncomplicated

== ENCOUNTER 2021-07-11 10:06 | Emergency (ER) | payer OTHER, SELFPAY ==
[2021-07-11 11:25] LABS: Urine Blood 3+ (Negative); Urine Glucose Negative (Negative); Urine Protein Negative (Negative)
[2021-07-11 11:35] LABS: BUN Blood Urea Nitrogen 9 mg/dL (7-18); Bicarbonate 28 mmol/L (21-32); Glucose Level 87 mg/dL (74-106); Potassium 3.6 mmol/L (3.5-5.1); Sodium Level 141 mmol/L (136-145); Thyroid Stimulating Hormone 0.861 uIU/mL (0.360-3.740)
[2021-07-11 11:40] LABS: Absolute Lymphocytes (CBC) 1.7 K/uL (0.7-4.9); Basophils % 0.5 % (0-1.3); Hematocrit 33.3 % (36.0-45.0); Lymphocytes % 21.9 % (15.3-44.8); MPV 9.3 fL (7.6-11.3); RBC Red Blood Cell Count 4.25 M/uL (3.86-4.86)
--- NOTE | 2021-07-11 12:46 | RAD REPORT ---
EXAM DESCRIPTION: US - Transvaginal Study Probe - 07/11/2021 11:41 am CLINICAL HISTORY: VAGINAL BLEEDING COMPARISON: No comparisons TECHNIQUE: Endovaginal sonography was performed. FINDINGS: Patient has a large thin-walled right ovarian cyst 5.2 cm in diameter. A few low-level int ernal echoes are present. No mural nodule or thickened septation. No adnexal mass identified. Left ov saroj shows no suspicious finding. Normal blood flow seen in the bilateral ovarian tissue on Doppler as sessment. No left adnexal mass. No blood or fluid in the cul de sac. Uterus is normal size measuring 8.5 x 4.3 x 5.3 cm. No myometria l mass lesion identifiable. A nabothian cyst is present in the cervix. Endometrium is up to 4 mm in t hickness with no endometrial mass or polyp confirmed. IMPRESSION: Patient has a large 5.2 centimeter right ovarian cyst. No mural nodule, septation or oth er suspicious component. No cyst rupture or hemorrhage findings. Remainder of the examination without significant finding.
--- NOTE | 2021-07-11 13:04 | ER ---
Nurse's Notes [facility] Name: Kristine Londono Age: 36 yrs Sex: Female : 1985 Arrival Date: 07/11/2021 Time: 10:08 Bed 30 Private MD: Diagnosis: Abnormal uterine and vaginal bleeding, unspecified;Other ovarian cysts Presentation: 07/11 10:29 Chief complaint: Patient states: vaginal bleeding x 17 days . Pt also reports back pain aa5 and lower abd cramping. Coronavirus screen: At this time, the client does not indicate any symptoms associated with coronavirus-19. Ebola Screen: Patient negative for fever greater than or equal to 101.5 degrees Fahrenheit, and additional compatible Ebola Virus Disease symptoms. Initial Sepsis Screen: Does the patient meet any 2 criteria? No. Patient's initial sepsis screen is negative. Does the patient have a suspected source of infection? No. Patient's initial sepsis screen is negative. Risk Assessment: Do you want to hurt yourself or someone else? Patient reports no desire to harm self or others. Onset of symptoms was June 2021. 10:29 Method Of Arrival: Ambulatory aa5 10:29 Acuity: ISAC 3 aa5 Triage Assessment: 11:02 General: Appears in no apparent distress. comfortable. Pain: Complains of pain in [facility] abdomen Neuro: No deficits noted. Level of Consciousness is awake, alert, obeys commands, Oriented to person, place, time, situation, Appropriate for age Coil Binder are equal bilaterally Moves all extremities. Gait is steady, Speech is normal, Facial symmetry appears normal. : Reports vaginal bleeding that is bright red, heavy flow. 11:25 General: Behavior is calm, cooperative, appropriate for age. [facility] Historical: - Allergies: 10:30 No Known Allergies; aa5 - PMHx: 10:30 None; aa5 - PSHx: 10:30 tubal ligation; Appendectomy; section; aa5 10:31 D\T\C; aa5 - Immunization history:: Client reports having NOT received the Covid vaccine. - Social history:: Smoking status: Patient reports the use of cigarette tobacco products, denies chronic smoking, but will smoke occasionally. Screenin:01 Abuse screen: Denies threats or abuse. Nutritional screening: No deficits noted. [facility] Tuberculosis screening: No symptoms or risk factors identified. Fall Risk None identified. No fall in past 12 months (0 pts). No secondary diagnosis (0 pts). IV access (20 points). Ambulatory Aid- None/Bed Rest/Nurse Assist (0 pts). Gait- Normal/Bed Rest/Wheelchair (0 pts) Mental Status- Oriented to own ability (0 pts). Assessment: 11:04 General: Appears in no apparent distress. comfortable. Pain: Complains of pain in [facility] abdomen. Cardiovascular: No deficits noted. Denies chest pain, shortness of breath. Respiratory: No deficits noted. Reports Airway is patent Respiratory effort is even, unlabored, Respiratory pattern is regular. GI: No deficits noted. Abdomen is flat, Abd is soft and non tender Reports cramping, Patient currently denies. 12:08 Reassessment: Patient appears in no apparent distress at this time. No changes from [facility] previously documented assessment. Patient and/or family updated on plan of care and expected duration. Pain level reassessed. Patient is alert, oriented x 3, equal unlabored respirations, skin warm/dry/pink. Vital Signs: 10:29 BP 130 / 88; Pulse 83; Resp 18; Temp 99.1(TE); Pulse Ox 100% on R/A; Weight 83.91 kg aa5 (R); Height 5 ft. 4 in. (162.56 cm) (R); 12:11 BP 117 / 81 (auto/); Pulse 70; Resp 18 S; Pulse Ox 100% on R/A; kh1 10:29 Body Mass Index 31.75 (83.91 kg, 162.56 cm) aa5 ED Course: 10:08 Patient arrived in ED. as 10:09 Celestina Damon FNP-C is PHCP. kb 10:09 Everett Zaman MD is Attending Physician. kb 10:29 Arm band placed on. aa5 10:30 Triage completed. aa5 10:43 Sandy Maria is Primary Nurse. 1 11:01 TSH Sent. kh1 11:01 Basic Metabolic Panel Sent. 11: CBC with Diff Sent. 1 11:05 Patient has correct armband on for positive identification. Placed in gown. Bed in low [facility] position. Call light in reach. Side rails up X 1. Pulse ox on. NIBP on. 11:42 US Transvaginal Study (Probe) In Process Unspecified. EDMS 13:10 No provider procedures requiring assistance completed. IV discontinued, intact, kh1 bleeding controlled, No redness/swelling at site. Pressure dressing applied. Administered Medications: No medications were administered Outcome: 13:03 Discharge ordered by . demond 13:10 Discharged to home ambulatory. kh1 13:10 Condition: stable 13:10 Discharge instructions given to patient, Instructed on discharge instructions, follow up and referral plans. Demonstrated understanding of instructions, follow-up care. 13:19 Patient left the ED. kh1 Signatures: Dispatcher [employer] EDIL Celestina Damon, SUPERVISOR ERECTION SHOP-C SUPERVISOR ERECTION SHOP-Sonya Argueta Audri, RN RN aa5 Sandy Maria kh1
--- NOTE | 2021-07-11 13:04 | EDPHYS ---
Physician Documentation [facility] Name: Kristine Londono Age: 36 yrs Sex: Female : 1985 Arrival Date: 07/11/2021 Time: 10:08 Bed 30 Private MD: ED Physician Everett Zaman HPI: 07/11 13:19 This 36 yrs old Female presents to ER via Ambulatory with complaints of kb Vaginal Bleeding, Abdominal Cramping, Back Pain. 13:19 The patient presents with vaginal bleeding that is moderate. Onset: The kb symptoms/episode began/occurred 17 day(s) ago. Modifying factors: The symptoms are alleviated by nothing, the symptoms are aggravated by nothing. Associated signs and symptoms: Pertinent positives: vaginal bleeding. Severity of symptoms: At their worst the symptoms were moderate, in the emergency department the symptoms are unchanged. The patient has not experienced similar symptoms in the past. The patient has not recently seen a physician. Pt states she has had vaginal bleeding for 17 days. reports lower abd cramps . Historical: - Allergies: 10:30 No Known Allergies; aa5 - PMHx: 10:30 None; aa5 - PSHx: 10:30 tubal ligation; Appendectomy; section; aa5 10:31 D\T\C; aa5 - Immunization history:: Client reports having NOT received the Covid vaccine. - Social history:: Smoking status: Patient reports the use of cigarette tobacco products, denies chronic smoking, but will smoke occasionally. ROS: 13:14 Constitutional: Negative for fever, chills, and weight loss. kb 13:14 Abdomen/GI: Positive for abdominal cramps, Negative for abdominal pain, nausea, vomiting, and diarrhea. 13:14 : Positive for vaginal bleeding. 13:14 All other systems are negative. Exam: 13:18 Constitutional: This is a well developed, well nourished patient who is awake, alert, kb and in no acute distress. Head/Face: Normocephalic, atraumatic. ENT: Moist Mucous membranes Respiratory: Respirations even and unlabored. No increased work of breathing, no retractions or nasal flaring. Abdomen/GI: Soft, non-tender. No distention Skin: Warm, dry with normal turgor. Normal color. MS/ Extremity: Pulses equal, no cyanosis. Neurovascular intact. Full, normal range of motion. Neuro: Awake and alert, GCS 15, oriented to person, place, time, and situation. Moves all extremities. Normal gait. Psych: Awake, alert, with orientation to person, place and time. Behavior, mood, and affect are within normal limits. Vital Signs: 10:29 BP 130 / 88; Pulse 83; Resp 18; Temp 99.1(TE); Pulse Ox 100% on R/A; Weight 83.91 kg aa5 (R); Height 5 ft. 4 in. (162.56 cm) (R); 12:11 BP 117 / 81 (auto/); Pulse 70; Resp 18 S; Pulse Ox 100% on R/A; kh1 10:29 Body Mass Index 31.75 (83.91 kg, 162.56 cm) aa5 MDM: 10:31 Patient medically screened. kb 12:57 Data reviewed: vital signs, nurses notes. Data interpreted: Pulse oximetry: on room air kb is 100 %. Interpretation: normal. Counseling: I had a detailed discussion with the patient and/or guardian regarding: the historical points, exam findings, and any diagnostic results supporting the discharge/admit diagnosis, lab results, radiology results, the need for outpatient follow up, an OB/Gyne specialist, to return to the emergency department if symptoms worsen or persist or if there are any questions or concerns that arise at home. 07/11 10:44 Order name: CBC with Diff; Complete Time: 11:43 kb 07/11 10:44 Order name: Basic Metabolic Panel; Complete Time: 11:43 kb 07/11 10:44 Order name: TSH; Complete Time: 11:43 kb 07/11 10:44 Order name: US Transvaginal Study (Probe); Complete Time: 12:53 kb 07/11 11:26 Order name: Urine Dipstick-Ancillary; Complete Time: 11:32 EDMS 07/11 11:26 Order name: Urine --Ancillary (enter results); Complete Time: 12:20 bd 07/11 10:40 Order name: Urine Dipstick-Ancillary (obtain specimen); Complete Time: 12:51 kb 07/11 10:40 Order name: Urine Test (obtain specimen); Complete Time: 12:51 kb 07/11 11:02 Order name: Labs - recollect needed: recollect lavender tube; Complete Time: 12:08 bd Administered Medications: No medications were administered Disposition: 07/12 05:50 Co-signature as Attending Physician, Everett Zaman MD I agree with the assessment and mitch plan of care. Disposition Summary: 07/11/21 13:03 Discharge Ordered Location: Home kb Condition: Stable kb Diagnosis - Abnormal uterine and vaginal bleeding, unspecified kb - Other ovarian cysts kb Followup: kb - With: Private Physician - When: 2 - 3 days - Reason: Recheck today's complaints, Continuance of care, Re-evaluation by your physician Followup: kb - With: Emergency Department - When: As needed - Reason: Worsening of condition Discharge Instructions: - Discharge Summary Sheet kb - Ovarian Cyst, [id number] kb - Abnormal Uterine Bleeding, [id number] kb Forms: - Medication Reconciliation Form kb - Thank You Letter kb - Antibiotic Education kb - Prescription Opioid Use kb Signatures: Dispatcher [employer] EDMS Celestina Damon, SCRAP PREPARATION SUPERVISOR-C SCRAP PREPARATION SUPERVISOR-Clari Bee Corey, MD MD cha Calderon, Audri, RN RN aa5
[2021-07-11 13:27] VITALS: TEMP 99.1; O2SAT 100
[2021-07-11 13:28] VITALS: BP 117/81
== END 2021-07-11 13:19 | disposition home or self-care (01) ==
LOC: ER 10:06
DX: N83.299 Other ovarian cyst, unspecified side (principal); F17.210 Nicotine dependence, cigarettes, uncomplicated
CPT/HCPCS: 36415; 76830; 80048; 81003; 81025; 84443; 85025; 99283

== ENCOUNTER 2022-07-06 20:49 | Emergency (ER) | payer OTHER, SELFPAY ==
[2022-07-06 22:12] LABS: Urine Blood Negative (Negative); Urine Glucose Negative (Negative); Urine Protein Negative (Negative)
[2022-07-06 22:37] LABS: Urine Bacteria <20 /HPF (<20); Urine Mucus Slight /HPF (None Seen); Urine RBC <5 /HPF (None Seen)
--- NOTE | 2022-07-06 23:28 | EDPHYS ---
Physician Documentation [facility] Name: Kristine Londono Age: 37 yrs Sex: Female : 1985 Arrival Date: 07/06/2022 Time: 20:53 Bed IW2 Private MD: ED Physician Jose Petty HPI: 07/06 21:44 This 37 yrs old Female presents to ER via Unassigned with complaints of Abdominal cp Cramping. 21:45 The patient presents with lower abdomen cramping. cp 21:45 Associated signs and symptoms: Pertinent positives: nausea, Pertinent negatives: cp constipation, diarrhea, dysuria, fever, vaginal discharge. Patient is with LMP Jun 02, 2022. Patient reports concern about the possibility of being . Has had positive and negative results from home tests. Patient requesting test. 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 - Social history:: Smoking status: Patient reports the use of cigarette tobacco products, denies chronic smoking, but will smoke occasionally. ROS: 21:50 Constitutional: Negative for body aches, chills, fever, poor PO intake. cp 21:50 Cardiovascular: Negative for chest pain, palpitations. cp 21:50 Respiratory: Negative for cough, shortness of breath, wheezing. 21:50 Abdomen/GI: Positive for nausea, lower abdomen cramps, Negative for vomiting, diarrhea, constipation. 21:50 Back: Negative for radiated pain. 21:50 : Negative for urinary symptoms, vaginal bleeding, vaginal discharge. 21:50 All other systems are negative. Exam: 21:55 Constitutional: The patient appears in no acute distress, alert, awake, comfortable, cp non-toxic, well developed, well nourished. 21:55 Head/Face: Normocephalic, atraumatic. cp 21:55 Eyes: Periorbital structures: appear normal, Conjunctiva: normal, Sclera: no appreciated abnormality, Lids and lashes: appear normal, bilaterally. 21:55 ENT: External ear(s): are unremarkable, Nose: is normal, Mouth: Lips: moist, Oral mucosa: moist, Posterior pharynx: Airway: no evidence of obstruction, patent. 21:55 Chest/axilla: Inspection: normal. 21:55 Cardiovascular: Rate: normal, Rhythm: regular. 21:55 Respiratory: the patient does not display signs of respiratory distress, Respirations: normal, no use of accessory muscles, no retractions, Breath sounds: are clear throughout, no decreased breath sounds, no stridor, no wheezing. 21:55 Abdomen/GI: Inspection: abdomen appears normal, Palpation: abdomen is soft and non-tender, in all quadrants. 21:55 Back: pain, is absent, ROM is normal. Vital Signs: 21:43 BP 138 / 91; Pulse 88; Resp 16; Temp 98.3(TE); Pulse Ox 100% on R/A; Weight 80.74 kg bm7 (R); Height 5 ft. 4 in. (162.56 cm); Pain 2/10; 21:43 Body Mass Index 30.55 (80.74 kg, 162.56 cm) bm7 MDM: 22:10 Patient medically screened. cp 23:27 Data reviewed: vital signs, nurses notes, lab test result(s). cp 23:27 Differential diagnosis: Ectopic , non-specific abd pain, Ovarian Torsion, cp Peritonitis, Pelvic Inflammatory Disease, urinary tract infection. Counseling: I had a detailed discussion with the patient and/or guardian regarding: the historical points, exam findings, and any diagnostic results supporting the discharge/admit diagnosis, lab results, the need for outpatient follow up, a family practitioner, to return to the emergency department if symptoms worsen or persist or if there are any questions or concerns that arise at home. 07/06 21:45 Order name: Urine Microscopic Only; Complete Time: 23:26 07/06 23: Interpretation: Reviewed. 07/06 21:45 Order name: Test, Serum; Complete Time: 23:26 07/06 23: Interpretation: Reviewed. 07/06 21:45 Order name: Urine Dipstick-Ancillary (obtain specimen); Complete Time: 22:09 09/22 21:45 Order name: Urine Test (obtain specimen); Complete Time: 22:09 cp 07/06 22:12 Order name: Urine Dipstick-Ancillary; Complete Time: 23:26 EDMS 07/06 23:26 Interpretation: Reviewed. cp 07/06 22:14 Order name: Urine --Ancillary (enter results); Complete Time: 23:26 tw5 Administered Medications: No medications were administered Disposition: 07/07 03:13 Co-signature as Attending Physician, Jose Petty DO I was immediately available onsite ms3 in the emergency department for consultation in the care of the patient. Disposition Summary: 07/06/22 23:27 Discharge Ordered Location: Home cp Problem: new cp Symptoms: have improved cp Condition: Stable cp Diagnosis - Encounter for test, result negative cp Followup: cp - With: Private Physician - When: 1 - 2 days - Reason: Worsening of condition Discharge Instructions: - Discharge Summary Sheet cp - Home Test Information cp Forms: - Medication Reconciliation Form cp - Thank You Letter cp - Antibiotic Education cp - Prescription Opioid Use cp Signatures: Dispatcher [employer] EDGA Everett Crowell PA PA cp Sims, Marcus, DO DO ms3 Marah Santos, RN RN bm7
--- NOTE | 2022-07-06 23:28 | ER ---
Nurse's Notes [facility] Name: Kristine Londono Age: 37 yrs Sex: Female : 1985 Arrival Date: 07/06/2022 Time: 20:53 Bed IW2 Private MD: Diagnosis: Encounter for test, result negative Presentation: 07/06 21:43 Chief complaint: Patient states: I had my tubes tied but I think I might be . bm7 My boobs hurt and i have had faint positives on at home tests. Coronavirus screen: At this time, the client does not indicate any symptoms associated with coronavirus-19. Ebola Screen: No symptoms or risks identified at this time. Initial Sepsis Screen: Does the patient meet any 2 criteria? No. Patient's initial sepsis screen is negative. Does the patient have a suspected source of infection? No. Patient's initial sepsis screen is negative. Risk Assessment: Do you want to hurt yourself or someone else? Patient reports no desire to harm self or others. Onset of symptoms is unknown. 21:43 Method Of Arrival: Ambulatory 7 21:43 Acuity: ISAC 3 bm7 Triage Assessment: 21:46 General: Appears in no apparent distress. comfortable, Behavior is calm, cooperative, bm7 appropriate for age. Pain: Complains of pain in suprapubic area. EENT: No deficits noted. No signs and/or symptoms were reported regarding the EENT system. Neuro: No deficits noted. Cardiovascular: No deficits noted. Respiratory: No deficits noted. GI: Abdomen is round non-distended, Bowel sounds present X 4 quads. Abd is soft and non tender X 4 quads. : Denies discharge, vaginal bleeding, vaginal itching. Derm: No deficits noted. No signs and/or symptoms reported regarding the dermatologic system. Musculoskeletal: No deficits noted. No signs and/or symptoms reported regarding the musculoskeletal system. 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 - Social history:: Smoking status: Patient reports the use of cigarette tobacco products, denies chronic smoking, but will smoke occasionally. Screenin:30 Abuse screen: Denies threats or abuse. Nutritional screening: No deficits noted. bm7 Tuberculosis screening: No symptoms or risk factors identified. Fall Risk None identified. Assessment: 23:30 Reassessment: No changes from previously documented assessment. bm7 Vital Signs: 21:43 BP 138 / 91; Pulse 88; Resp 16; Temp 98.3(TE); Pulse Ox 100% on R/A; Weight 80.74 kg bm7 (R); Height 5 ft. 4 in. (162.56 cm); Pain 2/10; 21:43 Body Mass Index 30.55 (80.74 kg, 162.56 cm) bm7 ED Course: 20:53 Patient arrived in ED. ja2 21:22 Everett Crowell PA is PHCP. cp 21:22 Jose Petty DO is Attending Physician. cp 21:46 Triage completed. bm7 21:46 Arm band placed on right wrist. bm7 22:09 Initial lab(s) drawn, by md, sent to lab. Urine collected: clean catch specimen, clear. bm7 Inserted saline lock: 20 gauge in right antecubital area, using aseptic technique. Blood collected. 23:30 Patient has correct armband on for positive identification. bm7 23:30 No provider procedures requiring assistance completed. intact, bleeding controlled, No bm7 redness/swelling at site. Pressure dressing applied. Administered Medications: No medications were administered Medication: 23:30 VIS not applicable for this client. bm7 Outcome: 23:27 Discharge ordered by . cp 23:30 Discharged to home ambulatory. bm7 23:30 Condition: good 23:30 Discharge instructions given to patient, family, Instructed on discharge instructions, follow up and referral plans. Demonstrated understanding of instructions, follow-up care. 23:32 Patient left the ED. bm7 Signatures: Everett Crowell PA PA cp McCarthy, Brittany, RN RN bm7 Afia Rick2
[2022-07-08 11:16] VITALS: BP 138/91; TEMP 98.3; O2SAT 100
== END 2022-07-06 23:32 | disposition home or self-care (01) ==
LOC: ER 20:49
DX: Z32.02 Encounter for pregnancy test, result negative (principal)
CPT/HCPCS: 36415; 81003; 81015; 81025; 84703; 99283

== ENCOUNTER 2022-11-13 21:06 | Emergency (ER) | payer SELFPAY ==
--- NOTE | 2022-11-13 22:26 | RAD REPORT ---
EXAM DESCRIPTION: RAD - Chest Pa And Lat (2 Views) - 11/13/2022 9:59 pm CLINICAL HISTORY: Chest pain COMPARISON: No comparisons FINDINGS: Lines: None. Lungs: No evidence of edema or pneumonia. Pleural: No significant pleural effusions or pneumothorax. Cardiac: The heart size is within normal limits. Mediastinum: Within normal limits. Bones: No acute fractures. Other: None IMPRESSION: No acute cardiopulmonary disease.
[2022-11-14] MEDS ORDERED: IBUPROFEN 400 MG TAB ONE (00:28)
[2022-11-14] MEDS ORDERED: ACETAMINOPHEN 325 MG TABLET ONE (00:28)
--- NOTE | 2022-11-14 00:39 | ER ---
Nurse's Notes [facility] Name: Kristine Londono Age: 37 yrs Sex: Female : 1985 Arrival Date: 11/13/2022 Time: 21:22 Bed 14 Private MD: Diagnosis: Disorder of breast, unspecified-right Presentation: 11/13 21:34 Chief complaint: Patient states: she has a lump on her breast for about a week with bb soreness and she is having SOB. Coronavirus screen: At this time, the client does not indicate any symptoms associated with coronavirus-19. Ebola Screen: No symptoms or risks identified at this time. Initial Sepsis Screen: Does the patient meet any 2 criteria? No. Patient's initial sepsis screen is negative. Does the patient have a suspected source of infection? No. Patient's initial sepsis screen is negative. Risk Assessment: Do you want to hurt yourself or someone else? Patient reports no desire to harm self or others. Onset of symptoms was November 06, 2022. 21:34 Method Of Arrival: Ambulatory bb 21:34 Acuity: ISAC 3 bb Triage Assessment: 21:39 General: Appears in no apparent distress. Behavior is calm, cooperative. Pain: bb Complains of pain in right sided breast pain. Neuro: Level of Consciousness is awake, alert, obeys commands, Oriented to person, place, time, situation. Cardiovascular: Capillary refill < 3 seconds Patient's skin is warm and dry. Respiratory: Reports shortness of breath Onset: The symptoms/episode began/occurred several days ago, the patient has mild shortness of breath. GI: No signs and/or symptoms were reported involving the gastrointestinal system. Derm: Skin is pink, warm \T\ dry. Musculoskeletal: Circulation, motion, and sensation intact. 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 - Social history:: Smoking status: Patient reports the use of cigarette tobacco products. Screenin/31 00:39 [facility] ED Fall Risk Assessment (Adult) History of falling in the last 3 months, aa9 including since admission No falls in past 3 months (0 pts) Confusion or Disorientation No (0 pts) Intoxicated or Sedated No (0 pts) Impaired Gait No (0 pts) Mobility Assist Device Used No (0 pt) Altered Elimination No (0 pt) Score/Fall Risk Level 0 - 2 = Low Risk. Abuse screen: Denies threats or abuse. Denies injuries from another. Nutritional screening: No deficits noted. Tuberculosis screening: No symptoms or risk factors identified. Assessment: 00:38 General: Appears in no apparent distress. comfortable, Behavior is calm, cooperative, aa9 appropriate for age. Pain: Complains of pain in right breast. Cardiovascular: Rhythm is regular. Respiratory: Airway is patent Respiratory effort is even, unlabored, Respiratory pattern is Breath sounds are clear. GI: No deficits noted. : No deficits noted. Derm: Skin is intact, is healthy with good turgor. 00:47 Reassessment: Patient appears in no apparent distress at this time. Patient is alert, aa9 oriented x 3, equal unlabored respirations, skin warm/dry/pink. Patient states feeling better. Vital Signs: 11/13 21:34 BP 120 / 81; Pulse 79; Resp 16 S; Temp 99.6(O); Pulse Ox 99% on R/A; Weight 81.65 kg bb (R); Height 5 ft. 4 in. (162.56 cm) (R); Pain 5/10; 11/14 00:09 BP 132 / 77; Pulse 77; Resp 19 S; Pulse Ox 97% on R/A; aa9 00:47 BP 127 / 72; Pulse 82; Resp 19 S; Pulse Ox 99% on R/A; aa9 11/13 21:34 Body Mass Index 30.90 (81.65 kg, 162.56 cm) bb ED Course: 11/13 21:22 Patient arrived in ED. ag3 21:22 Everett Crowell PA is PHCP. cp 21:22 Everett Zaman MD is Attending Physician. cp 21:38 Triage completed. bb 21:39 Arm band placed on Patient placed in waiting room, Patient notified of wait time bb Patient evaluated by Everett JAIME in triage. 22:01 XRAY Chest Pa And Lat (2 Views) In Process Unspecified. EDMS 11/14 00:38 BREAST/AXILLA, LIMITED In Process Unspecified. EDMS 00:39 Patient has correct armband on for positive identification. Bed in low position. Side aa9 rails up X2. 00:47 No provider procedures requiring assistance completed. Patient did not have IV access aa9 during this emergency room visit. Administered Medications: 00:38 Drug: Ibuprofen 800 mg Route: PO; aa9 00:48 Follow up: Response: No adverse reaction aa9 00:38 Drug: Tylenol 650 mg Route: PO; aa9 00:48 Follow up: Response: No adverse reaction aa9 Medication: 00:39 VIS not applicable for this client. aa9 Outcome: 00:39 Discharge ordered by . mariya 00:47 Discharged to home ambulatory. aa9 00:47 Condition: stable 00:47 Discharge instructions given to patient, Instructed on discharge instructions, follow up and referral plans. medication usage, Demonstrated understanding of instructions, follow-up care, medications, Prescriptions given X 1. 00:51 Patient left the ED. aa9 Signatures: Dispatcher [employer] EDMS Joceline Johnson, RN RN Everett Perdomo PA PA cp Gomez, Alice ag3 Ritika Hooper, RN RN aa9
--- NOTE | 2022-11-14 00:39 | EDPHYS ---
Physician Documentation [facility] Name: Kristine Londono Age: 37 yrs Sex: Female : 1985 Arrival Date: 11/13/2022 Time: 21:22 Bed 14 Private MD: ED Physician Everett Zaman HPI: 11/13 22:00 This 37 yrs old Female presents to ER via Ambulatory with complaints of RIB PAIN, cp Breathing Difficulty. 22:00 The patient or guardian reports chest pain that is located primarily in the right cp lateral breast. The pain does not radiate. The chest pain is described as aching. Duration: The patient or guardian reports a single episode, that is still ongoing, and unchanged, started about 1 week ago. 22:00 Associated signs and symptoms: Pertinent negatives: abdominal pain, cough, diaphoresis, cp lower extremity pain, lower extremity swelling, syncope, vomiting, fever. 22:00 Severity of pain: in the emergency department the pain is unchanged despite home cp interventions. 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 - Social history:: Smoking status: Patient reports the use of cigarette tobacco products. ROS: 22:05 Constitutional: Negative for body aches, chills, fever, poor PO intake. cp 22:05 Eyes: Negative for injury, pain, redness, and discharge. cp 22:05 ENT: Negative for drainage from ear(s), ear pain, sore throat, difficulty swallowing, difficulty handling secretions. 22:05 Cardiovascular: Negative for edema, palpitations. 22:05 Respiratory: Negative for cough, shortness of breath, wheezing. 22:05 Abdomen/GI: Negative for abdominal pain, nausea, vomiting, and diarrhea. 22:05 Skin: Positive for swelling, of the lateral side right breast, pain, tender mass. 22:05 Neuro: Negative for altered mental status, dizziness, headache, syncope, weakness. 22:05 All other systems are negative. Exam: 22:10 Constitutional: The patient appears in no acute distress, alert, awake, cp non-diaphoretic, non-toxic, well developed, well nourished. 22:10 Head/Face: Normocephalic, atraumatic. cp 22:10 Eyes: Periorbital structures: appear normal, Conjunctiva: normal, no exudate, no injection, Sclera: no appreciated abnormality, Lids and lashes: appear normal, bilaterally. 22:10 ENT: External ear(s): are unremarkable, Nose: is normal, Mouth: Lips: moist, Oral mucosa: moist, Posterior pharynx: Airway: no evidence of obstruction, patent. 22:10 Chest/axilla: Breasts: tenderness, that is moderate, right lateral breast, palpable mass, overlying skin warm/dry w/o erythema. 22:10 Cardiovascular: Rate: normal, Rhythm: regular, Edema: is not appreciated. 22:10 Respiratory: the patient does not display signs of respiratory distress, Respirations: normal, no use of accessory muscles, no retractions, labored breathing, is not present, Breath sounds: are clear throughout, no decreased breath sounds, no stridor, no wheezing. Vital Signs: 21:34 BP 120 / 81; Pulse 79; Resp 16 S; Temp 99.6(O); Pulse Ox 99% on R/A; Weight 81.65 kg bb (R); Height 5 ft. 4 in. (162.56 cm) (R); Pain 5/10; 11/14 00:09 BP 132 / 77; Pulse 77; Resp 19 S; Pulse Ox 97% on R/A; aa9 00:47 BP 127 / 72; Pulse 82; Resp 19 S; Pulse Ox 99% on R/A; aa9 11/13 21:34 Body Mass Index 30.90 (81.65 kg, 162.56 cm) bb MDM: 11/13 21:48 Patient medically screened. 11/14 00:39 Data reviewed: vital signs, nurses notes, radiologic studies, plain films, ultrasound. 00:39 I considered the following discharge prescriptions or medication management in the emergency department Medications were administered in the Emergency Department. See MAR. Test considered but Not performed: Labs: CBC, BMP. Counseling: I had a detailed discussion with the patient and/or guardian regarding: the historical points, exam findings, and any diagnostic results supporting the discharge/admit diagnosis, radiology results, the need for outpatient follow up, a general surgeon. ED course: VSS. US tech reports most likely mass is cyst. Will discharge to home for continued monitoring. Recommend f/u with general surgery and mammogram. 11/13 21:39 Order name: XRAY Chest Pa And Lat (2 Views); Complete Time: 23:08 cp 11/14 00:38 Order name: BREAST/AXILLA, LIMITED; Complete Time: 19:26 EDMS Administered Medications: 00:38 Drug: Ibuprofen 800 mg Route: PO; aa9 00:48 Follow up: Response: No adverse reaction aa9 00:38 Drug: Tylenol 650 mg Route: PO; aa9 00:48 Follow up: Response: No adverse reaction aa9 Disposition Summary: 11/14/22 00:39 Discharge Ordered Location: Home cp Problem: new cp Symptoms: are unchanged cp Condition: Stable cp Diagnosis - Disorder of breast, unspecified - right cp Followup: cp - With: Private Physician - When: 2 - 3 days - Reason: Recheck today's complaints Discharge Instructions: - Discharge Summary Sheet cp - Breast Self-Awareness cp - Breast Tenderness cp Forms: - Medication Reconciliation Form cp - Thank You Letter cp - Antibiotic Education cp - Prescription Opioid Use cp Prescriptions: - Diclofenac Sodium 75 mg Oral tablet,delayed release (DR/EC) - take 1 tablet by ORAL route 2 times per day; 20 tablet; Refills: 0, Product cp Selection Permitted Signatures: Dispatcher [employer] Joceline Pleitez RN RN bb Page, Corey, PA PA cp Ritika Hooper RN RN aa9 Corrections: (The following items were deleted from the chart) 00:38 00:09 Extrmty Nonvasular Limited+[id number] ordered. EDMS EDMS
[2022-11-14 01:15] VITALS: TEMP 99.6
[2022-11-14 01:17] VITALS: BP 127/72; O2SAT 99
--- NOTE | 2022-11-14 07:25 | RAD REPORT ---
EXAM DESCRIPTION: US - BREAST/AXILLA, LIMITED - 11/14/2022 12:37 am CLINICAL HISTORY: Right breast pain COMPARISON: None FINDINGS: Sonographic evaluation the right breast was performed as a limited study of the upper oute r right breast area of seen. At the area of concern approximately 15 mm deep to the skin surface there is a 7 millimeter generally rounded mass with irregular borders. There also appears to be a narrow hypoechoic channel that exten ds from this mass towards the skin surface. The findings would suggest a small abscess with a tract extending towards the skin surface. Correlati on is needed with any clinical findings of upper outer right breast infection/inflammatory change. Th e skin layer does not appear thickened or edematous. A small breast malignancy would not be common in this age patient but cannot be excluded if there are no findings to support infection and there is no improvement following medical management. The surrounding breast tissues do not appear abnormally thickened or edematous. No additional mass id entifiable. The abscess versus breast mass concerns were telephoned to Dr Zaman [id number] hours. IMPRESSION: A 7 mm rounded mass with irregular borders present in the upper outer right breast at th e area of pain. There does appear to be a small hypoechoic tract that extends towards the skin surfac e. Breast abscess with a draining tract extending towards the service would be the primary consideration . Correlation is needed with any supporting clinical findings. Breast malignancy would not be common at this age but is not excluded based on the imaging characteri stics of the mass. Continued close follow-up is recommended following medical management to assure re solution of the mass.
== END 2022-11-14 00:51 | disposition home or self-care (01) ==
LOC: ER 21:06
DX: N64.89 Other specified disorders of breast (principal)
CPT/HCPCS: 71046; 76642

== ENCOUNTER 2022-11-14 20:45 | Emergency (ER) | payer SELFPAY ==
--- OUTSIDE RECORDS SUMMARY | 2022-11-14 21:33 | XMS REPORT | Continuity of Care Document ---
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 2326 Reported and signed by: Clif Ji M.D. CC: Laura JAIME Technologist:Roberto Adler RT(R)(CT) CTDI: DLP: Trnscb Date/Time: 11/29/2019 (770) Yury Orig Print D/T: S: 11/29/2019 (3772) PAGE 2 Signed Report TROPONIN-I 2019-11-12 17:17:00 Test Item Value Reference Range Interpretation Comme nts TROPONIN-I (test code = < 0.015 ng/mL 0.000-0.045 N Neg ative: <= 0.045 Positive: >= TROPI) 0.046 Correlati on with serial results, other cardiac markers andclinical fin dings is necessary to determine th e clinicalsignifi cance of this result. Results using different methodologies s hould not be comparedto one another as quantitative re sults may vary by method. - XR CHEST 2 [id number] 17:02:00 FAX: Isidra Horn NP [phone] [place]: St: PRE Name: MANDA SILVESTRE [facility] : 1985 Age/S: 34/F [address] [place] [address] Unit #: [id number] Loc: [place] [address] Phys: Isidra Horn NP Acct: [id number] Dis Date: Status: PRE ER PHONE #: [phone] Exam Date: 11/12/2019 1654 FAX #: Reason: chest pain EXAMS: CPT CODE: [id number] XR CHEST 2 V 06737 Clinical Indication: Chest pain. Comparison: 08/26/2018. Impression: Chest, 2 views. Lungs are clear. No consolidation, pleural effusion, or pneumothorax. Cardiomediastinal silhouette is unremarkable. No acute osseous abnormality. SL: [id number] at 1702 Reported and signed by: Mitch Gallo M.D. CC: Isidra Horn NP Technologist: RT Tanvi(R)Trnscrd Date/Time/By: 11/12/2019 (1701) : By: [email or web address] Orig Print D/T: S: 11/12/2019 (0185) PAGE 1 Signed Report- CT ABD PELVIS W/O [id number] 23:02:00 Name: MANDA SILVESTRE [facility] : 1985 Age/S: 34 / F [address] [place] [address] Unit #: [id number] Loc: [place] [address] Phys: Noel Hudson MD Acct: [id number] Dis Date: Status: REG ER PHONE #: [phone] Exam Date: 10/23/2019 2245 FAX #: [phone] Reason: left flank pain, evaluate for kidney stones EXAMS: CPT CODE: [id number] CT ABD PELVIS W/O CONT 34534 STUDY: - CT ABD PELVIS W/O CONT 10/23/2019 8:51 PM Ordering Physician: Noel Hudson MD Patient Name: MANDA SILVESTRE MR: [id number] : 1985; Age: 34 years y/o Female [...] WITHOUT CONTRAST: VISUALIZED LUNG BASES: No significant abnormality.BOWEL GAS: Mild constipation. APPENDIX: The appendix is not identified with certainty, but no pericecal inflammation is appreciated. STOMACH: Normal for degree of distention. PERITONEUM AND MESENTERY:Free Air: No evidence of pneumoperitoneum. Free Fluid: No evidence of significant free fluid, loculated fluid, peripherally enhancing abscess, or hemorrhage. Mesenteric and peritoneal fat: Normal without focal lesion or inflammation. LYMPH NODES: Scattered subcentimeter central mesenteric and retroperitoneal lymph nodes without lymphadenopathy or mass. VASCULAR: Abdominal Aorta: Normal caliber nonenhanced abdominal aorta. PAGE 1 Signed Report (CONTINUED) Name: MANDA SILVESTRE [facility] [place] : 1985 Age/S: 34 / F [address] [place] [address] Unit #: [id number] Loc: [place] [address] Phys: Noel Hudson MD Acct: [id number] Dis Date: Status: REG ER PHONE #: [phone] Exam Date: 10/23/20192244 FAX #: [phone] Reason: left flank pain, evaluate for kidney stones EXAMS: CPT CODE: [id number] CT ABD PELVIS W/O CONT 65293 (Continued) IVC: Normal caliber nonenhanced. ABDOMINAL ORGANS: Liver: Normal nonenhanced without discrete lesion. Gallbladder: Contracted and mildly appropriately thick-walled without calcified gallstones or inflammation. Biliary Tree: Normal without dilatation. Kidneys: Normal size nonenhanced kidneys with punctate nonobstructing calculi versus artifact in both kidneys. No ureterolithiasis, hydronephrosis, or suspicious focal lesion in either kidney. Adrenal Glands: Normal nonenhanced without discrete lesion. Pancreas: Normal nonenhanced without discrete lesion. Spleen: [...] 2 Signed Report (CONTINUED) Name: MANDA SILVESTRE [facility] [place] : 1985 Age/S: 34 / F [address] [place] [address] Unit #: [id number] Loc: [place] [address] Phys: Noel Hudson MD Acct: [id number] Dis Date: Status: REG ER PHONE #: [phone] Exam Date: 10/23/20192244 FAX #: [phone] Reason: left flank pain, evaluate for kidney stones EXAMS: CPT CODE: [id number] ABD PELVIS W/O CONT 10193 (Continued) Small fat-containing periumbilical hernia and mild rectus dehiscence. Mild constipation. SL: TPAINTER-H at 2302 Reported and signed by: Dylan Mcintyre M.D. CC: Noel Hudson MD Technologist:Shantell Nuñez RT(R)(CT) CTDI: DLP: Trnscb Date/Time: 10/23/2019 (2301) [email or web address] Orig Print D/T: S: 10/23/2019 (2304) PAGE 3 Signed ReportCOMPREHENSIVE METABOLIC [id number] 22:25:00 Test Item Value Reference Range Interpretation [...] 20-125 N TOTAL (test code = ALKP) [id number] 22:25:00 Test Item Value Reference Range Interpretation Comments LIPASE (test code = LIP) 160 IUnit/L 73-393 N HCG SERUM [id number] 22:25:00 Test Item Value Reference Range Interpretation Comments HCG SERUM QUAL (test code = SERUM NEGATIVE NEGATIVE HCGQL) COMPREHENSIVE METABOLIC [id number] 22:20:00 Test Item Value Reference Range Interpretation [...] TOTAL (test IUnit/L 20-125 code = ALKP) [id number] 22:20:00 Test Item Value Reference Range Interpretation Comments LIPASE (test code = LIP) 160 IUnit/L 73-393 N HCG SERUM [id number] 22:20:00 Test Item Value Reference Range Interpretation Comments HCG SERUM QUAL (test code = SERUM NEGATIVE NEGATIVE HCGQL) COMPREHENSIVE METABOLIC [id number] 22:17:00 Test Item Value Reference Range Interpretation [...] TOTAL (test IUnit/L 20-125 code = ALKP) [id number] 22:17:00 Test Item Value Reference Range Interpretation Comments LIPASE (test code = LIP) IUnit/L 73-393 HCG SERUM [id number] 22:17:00 Test Item Value Reference Range Interpretation Comments HCG SERUM QUAL (test code = SERUM NEGATIVE NEGATIVE HCGQL) CBC W/AUTO [id number] 22:11:00 Test Item Value Reference Range Interpretation [...] = MDIFF) UA RFLX MICR CULT IF [id number] 21:09:00 Test Item Value Reference Range Interpretation [...] culture: Flank PainSpecimen Description: CLEAN CATCH- XR L-SPINE / [id number] 21:33:00 FAX: Inessa Brown MD [phone] [place]: St: PRE Name: MANDA SILVESTRE [facility] : 1985 Age/S: 34/F [address] [place] [address] Blvd Unit #: [id number] Loc: [place] [address] Phys: Inessa Luna MD Acct:[id number] Dis Date: Status: PRE ER PHONE #: [phone] Exam Date: 07/15/20192128 FAX #: [phone] Reason: acute pain s/p fall EXAMS: CPT CODE: [id number] XR L-SPINE 2/3 VIEWS 90033 Clinical Indication: acute pain s/p fall; Comparison: 04/02/2019 FINDINGS: AP, lateral, and coned down lateral 3 views of the lumbar spine demonstrate 5 nonrib-bearing lumbar-type vertebrae. Disk spacing is maintained. No radiographically evident fracture or subluxation. The posterior elements, spinous processesand transverse processes are normal. Paraspinal soft tissues are unremarkable. If there is further concern or neurological abnormalities on clinical exam, CT or MRI of the lumbar spine may be performed for complete assessment. IMPRESSION: No acute fracture or dislocation of the lumbar spine. SL: LANVU-H at 2132 Reported and signed by: Hank Espinosa M.D. CC: Inessa Luna MD Technologist: Joceline Villegas RT(R)(M); Brent Drake RT(R) Trngard Date/Time/By: 07/15/2019 (2132) : By: Chip.LNV Orig Print D/T: S: 07/15/2019 (2135) PAGE 1 Signed Rep ort- XR HIP W/PEL UNI 2+V [id number] 21:32:00 FAX: Inessa Brown MD [phone] [place]: St: PRE Name: MANDA SILVESTRE [facility] : 1985 Age/S: 34/F [address] [place] [address] Unit #: [id number] Loc: [place] [address] Phys: Inessa Luna MD Acct: [id number] Dis Date: Status: PRE ER PHONE #: [phone] Exam Date: 07/15/20192128 FAX #: [phone] Reason: acute pain s/p fall EXAMS: CPT CODE: [id number] XR HIP W/PEL UNI 2+[place] [address] Clinical Indication: acute pain s/p fall; Comparison: None FINDINGS: The 2 views of the left hip show normalalignment without fractures or dislocations. There are no radio-opaque foreign bodies. The acetabulum is unremarkable. The visualized sacroiliac joint and symphysis pubis are unremarkable. If there is f urther concern, recommend follow-up radiographs or MRI for complete assessment. IMPRESSION: No fracture or dislocation of the left hip. SL: HANKVU-H at 2131 Reported and signed by: Hank Espinosa M.D. CC: Inessa Luna MD Technologist: Joceline Villegas RT(R)(M); Brent Drake RT(R) Trnscrd Date/Time/By: 07/15/2019 (2131) : By: Chip.LNV Orig PrintD/T: S: 07/15/2019 (2134) PAGE 1 Signed ReportSURGICAL SPECIMENS 2019-07-03 09:33:00 RUN DATE: 07/03/19 [facility] *LIVE* PAGE 1 RUN TIME: 933 Specimen Inquiry RUN USER: INTERFACE --PATIENT: MANDA SILVESTRE #: [id number] LOC: [place] U #: [id number] AGE/SX: 34/F [place] [facility] [place]/26[place]19REG DR: Kishore Mclean MD : [birth year] BED: 1 DIS: 06/27/19 STATUS: DIS IN TLOC: SPEC #: [id number] RECD: 06/26/19 STATUS: SOUFrancisco Javier REQ #: [id number] SUSANNE: 06/26/[address]: Kishore Mclean MD ENTERED: 07/01/19 SP TYPE: SURG SPEC OTHR DR: No Primary or Family Physician Self ReferredORDERED: GM LEVEL 4 CODES: [id number] - APPENDIX, NOS COPIES TO: No Primary or Family Physician Self Referred Darrel Mclean [address] [address] PROCEDURES: GM LEVEL 4 (Incomplete) TISSUES: 1. APPENDIX, NOS [...] proximal portion of the appendix shows stenosis of the lumen. No significant dysplasia is identified. CONTINUED ON NEXT PAGE RUN DATE: 07/03/19 [facility] *LIVE* PAGE 2 RUN TIME: 933 Specimen Inquiry RUN USER: INTERFACE SPEC #: [id number] PATIENT: MANDA SILVESTRE #[id number] (Continued) POST-OP DIAGNOSIS Appendicitis PRE-OP DIAGNOSIS Appendicitis REVIEWEDBY: MR Signed SIGNATURE ON FILE John Neal DO 07/03/19 0933 END OF REPORT CBC W/AUTO [id number] 09:01:00 Test Item Value Reference Range Interpretation [...] (test code NO = MDIFF) BASIC METABOLIC [id number] 07:59:00 Test Item Value Reference Range Interpretation [...] 8.0-10.5 N CA) - CT ABD PELVIS W/[id number] 02:10:00 Name: MANDA SILVESTRE 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 TECHNIQUE: Helical imaging was performed from diaphragm through the symphysis with coronal and sagittal reconstructions. CT imaging was performed with exposure control parameters to reduce radiation dose. All CT scans at this location are performed using dose optimization techniques as appropriate to perform exam including the following: * Automated exposure control * Adjustment of the mA and /or kV according to patient size (this includestechniques or standardized protocols for targeted exams where dose is matched to indication/reason for exam; extremities or head) * Use of iterative reconstruction technique IV CONTRAST: 100 cc Isovue.GI CONTRAST: YES CT Radiation Dose: DLP = 511.34 mGy-cm FINDINGS: LOWER CHEST: The visualized lung bases are clear. LIVER: Unremarkable. GALLBLADDER: Hyperdense sludge in the gallbladder. INTRAHEPATIC BILE DUCT AND EXTRAHEPATIC BILE DUCT: Unremarkable. PANCREAS: Unremarkable. SPLEEN: Unremarkable. ADRENALS: Unremarkable. KIDNEYS AND URETERS: Unremarkable. STOMACH: Unremarkable. BOWEL: The small bowelloops in the abdomen and pelvis appear unremarkable. Mildly prominent colon with scattered nonspecific air-fluid levels, most likely due to diarrheal condition. No evidence of bowel obstruction APPENDIX: The appendix is dilated measuring up to 10 mm in diameter. Mildly thickened appendiceal wall and mild periappendiceal inflammatory changes. Small right lower flank lymph nodes. Findings suggestive of nonperforated acute appendicitis. PERITONEUM AND RETROPERITONEUM: No ascites or free air. There is no aortic aneurysm or dissection. PAGE 1 Signed Report (CONTINUED) Name: MANDA SILVESTRE [facility] : 1985 Age/S: 34 / F [address] [place] [address] Unit #: [id number] Loc: [place] [address] Phys: Zhanna Park HARDWARE TEST ENGINEER Acct: [id number] Dis Date: Status: REG ER PHONE #: [phone] Exam Date: 06/25/2019 0133 FAX #: [phone] Reason: abd pain EXAMS: CPT CODE: [id number] CT ABD PELVIS W/CONT 75337 (Continued) LYMPH NODES: Unremarkable. PELVIS: No pelvic mass or adenopathy. Trace free fluid in the pelvis. Anteverted and unremarkable uterus. Ovaries are not well seen. BLADDER: Unremarkable. OSSEOUS STRUCTURES: No acute abnormality seen. SOFT TISSUES: Unremarkable. IMPRESSION:1. Acute appendicitis. No abscess seen. 2. Mildly prominent colon with scattered nonspecific air-fluid levels, most likely due to diarrheal condition. No evidence of bowel obstruction. SL: JSYED-H E lectronically Signed by Panchito Mathis on 06/25/2019 at 0210 Reported and signed by: Andrea Mathis M.D. CC: Meg Ortega DO; Zhanna Park NP Technologist:Ja Erickson, RT(R)(CT) CTDI: DLP: Trnscb Date/Time: 06/25/2019 (209) t.SDR.JS38 Orig Print D/T: S: 06/25/2019 (3) PAGE 2 Signed ReportHCG SERUM [id number] 00:50:00 Test Item Value Reference Range Interpretation Comments HCG SERUM QUAL (test code = SERUM NEGATIVE NEGATIVE HCGQL) PER DELICIA [place] RNURINALYSIS [id number] 23:27:00 Test Item Value Reference Range Interpretation [...] /HPF NONE SEEN A SQU) COMPREHENSIVE METABOLIC [id number] 23:11:00 Test Item Value Reference Range Interpretation [...] TOTAL (test code = ALKP) COMPREHENSIVE METABOLIC [id number] 23:06:00 Test Item Value Reference Range Interpretation [...] IUnit/L 20-125 code = ALKP) CBC W/AUTO [id number] 22:48:00 Test Item Value Reference Range Interpretation [...] MANUAL DIFF REQUIRED (test NO code = MDIFF) - XR L-SPINE 2/3 [id number] 22:46:00 FAX: Noel Forrester MD [phone] [place]: St: REG Name: MANDA SILVESTRE [facility] : 1985 Age/S: 34/F [address] [place] [address] Unit #: [id number] Loc: [place] [address] Phys: Noel Hudson MD Acct: [id number] Dis Date: Status: REG ER PHONE #: [phone] Exam Date: 04/02/20192235 FAX #: [phone] Reason: acute back pain EXAMS: CPT CODE: [id number] XR L-SPINE 2/3 VIEWS 61331 Three-view lumbar spine. INDICATION: Acute lumbar back pain, weakness in legs for 3 days. FINDINGS: No prior for comparison. Lumbar vertebral bodies are normal in height and alignment on the lateral view.The disc spaces are preserved in height. Mild anterior spurring seen at T12, L1, L4, and L5. IMPRESSION: Minimal degenerative spurring. Otherwise, normal exam. SL: SG-H at 6809 Reported and signed by: Reggie Laurent M.D. CC: Noel Hudson MD Technologist: RT Miguel(Sergio) Trnscrd Date/Time/By: 04/02/2019 (7385) : By: [email or web address] Orig Print D/T: S: 04/02/2019 (6458) PAGE 1 Signed Report- XR ANKLE 3 + V [id number] 15:56:00 FAX: Rupali Flores NP [place]: St: REG Name: MANDA SILVESTRE [facility] : 1985 Age/S: 33/F [address] [place] [address] Unit #: [id number] Loc: [place] [address] Phys: Rupali Flores NP Acct: [id number] Dis Date: Status: REG ER PHONE #: [phone] Exam Date: 02/06/2019 1549 FAX #: Reason: pain s/p stepping in a hole EXAMS: CPT CODE: [id number] XR ANKLE 3 + V LT [address] PROCEDURE: - XR ANKLE 3 + V LT INDICATION: 33 years Female, pain s/p stepping in a hole. COMPARISON: Left ankle x-ray of 04/25/2018. FINDINGS: 3 views left ankle. No acute bony fracture, subluxation or dislocation. Talar dome and ankle mortise intact IMPRESSION: No acute findings SL: [id number] at 9412 Reported and signed by: Nael Billingsley M.D. CC: Rupali Flores NP Technologist: RT Melania(Sergio) Moe Date/Time/By: 02/06/2019 (5103) : By: [email or web address] Orig Print D/T: S: 02/06/2019 (6693) PAGE 1 Signed Report- XR FOOT 3 + V [id number] 15:55:00 FAX: Rupali Flores NP [place]: St: REG Name: MANDA SILVESTRE [facility] : 1985 Age/S: 33/F [address] [place] [address] Unit #: [id number] Loc: [place] [address] Phys: Rupali Flores NP Acct: [id number] Dis Date: Status: REG ER PHONE #: [phone] Exam Date: 02/06/2019 1549 FAX #: [phone] Reason: pain s/p stepping in a hole EXAMS: CPT CODE: [id number] XR FOOT 3 + V LT [address] PROCEDURE:- XR FOOT 3 + V LT INDICATION: 33 years Female, pain s/p stepping in a hole. COMPARISON: Left foot x-ray of 04/25/2018 FINDINGS: 3 views left foot. No acute bony fracture, subluxation or dislocation. Noradiopaque foreign objects. No soft tissue gas formation or bony destruction IMPRESSION: No acute findings SL: [id number] at 0078 Reportedand signed by: Nael Billingsley M.D. CC: Rupali Flores NP Technologist: ADAM Velázquez) Trnmayela Date/Time/By: 02/06/2019 (8585) : By: [email or web address] Orig Print D/T: S: 02/06/2019 (3566) PAGE 1 Signed Report
[2022-11-14 21:54] LABS: Urine Blood Negative (Negative); Urine Glucose Negative (Negative); Urine Protein Negative (Negative)
[2022-11-14 21:55] LABS: Absolute Lymphocytes (CBC) 1.9 K/uL (0.7-4.9); Hematocrit 33.1 % (36.0-45.0); Lymphocytes % 21.7 % (15.3-44.8); MCV 71.7 fL (80-100); MPV 9.9 fL (7.6-11.3); RBC Red Blood Cell Count 4.62 M/uL (3.86-4.86)
[2022-11-14 22:08] LABS: Potassium 3.5 mmol/L (3.5-5.1)
[2022-11-14] MEDS ORDERED: SMZ./TMP. 800/160 MG TABLET ONE (22:38)
[2022-11-14] MEDS ORDERED: CLINDAMYCIN 900MG/D5W 900 MG/50 ML IVPB IV ONE (22:38)
[2022-11-14] MEDS ORDERED: KETOROLAC 30 MG/ML INJ ONE (22:38)
--- NOTE | 2022-11-14 22:46 | ER ---
Nurse's Notes [facility] Name: Kristine Londono Age: 37 yrs Sex: Female : 1985 Arrival Date: 11/14/2022 Time: 20:48 Bed 10 Private MD: Diagnosis: Right Lateral Breast Abscess Presentation: 11/14 20:52 Chief complaint: Patient states: I was here last night, I have a lump in my right kd3 breast. Everett Crowell called me tonight and told me to come back. Coronavirus screen: Vaccine status: Patient reports being unvaccinated. Ebola Screen: No symptoms or risks identified at this time. Initial Sepsis Screen: Does the patient meet any 2 criteria? No. Patient's initial sepsis screen is negative. Does the patient have a suspected source of infection? No. Patient's initial sepsis screen is negative. Risk Assessment: Do you want to hurt yourself or someone else? Patient reports no desire to harm self or others. Onset of symptoms was November 14, 2022. 20:52 Method Of Arrival: Ambulatory kd3 20:52 Acuity: ISAC 4 kd3 Triage Assessment: 20:53 General: Appears in no apparent distress. Behavior is cooperative, anxious. Pain: kd3 Complains of pain in right breast. Neuro: Level of Consciousness is awake, alert, obeys commands, Oriented to person, place, time, situation. Cardiovascular: Patient's skin is warm and dry. Respiratory: Airway is patent Trachea midline Respiratory effort is even, unlabored, Respiratory pattern is regular, symmetrical. 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 - Social history:: Smoking status: Patient denies any tobacco usage or history of. Screenin:54 [facility] ED Fall Risk Assessment (Adult) History of falling in the last 3 months, kd3 including since admission No falls in past 3 months (0 pts) Confusion or Disorientation No (0 pts) Intoxicated or Sedated No (0 pts) Impaired Gait No (0 pts) Mobility Assist Device Used No (0 pt) Altered Elimination No (0 pt) Score/Fall Risk Level 0 - 2 = Low Risk Oriented to surroundings. Abuse screen: Denies threats or abuse. Denies injuries from another. Nutritional screening: No deficits noted. Tuberculosis screening: No symptoms or risk factors identified. Assessment: 21:15 Reassessment: pt reports small lump in right breast. General: Appears in no apparent mb9 distress. comfortable, Behavior is calm, cooperative. Pain: Complains of pain in right breast Pain radiates to chest. Neuro: Tony Agitation-Sedation Scale (RASS): 0 - Alert and Calm Level of Consciousness is awake, alert, obeys commands, Oriented to person, place, time, situation, Appropriate for age. Cardiovascular: Capillary refill < 3 seconds is brisk Patient's skin is warm and dry. Respiratory: Airway is patent Respiratory effort is even, unlabored, Respiratory pattern is regular, symmetrical. GI: Abdomen is round non-distended. : Urine is clear. EENT: No signs and/or symptoms were reported regarding the EENT system. Derm:. Derm: Skin is pink, warm \T\ dry. Musculoskeletal: Range of motion: intact in all extremities. 22:46 Reassessment: No changes from previously documented assessment. Patient and/or family mb9 updated on plan of care and expected duration. Pain level reassessed. Patient is alert, oriented x 3, equal unlabored respirations, skin warm/dry/pink. Vital Signs: 20:50 BP 128 / 81; Pulse 19; Resp 19; Temp 98.9(O); Pulse Ox 100% ; Weight 81.65 kg; Height 5 kd3 ft. 4 in. (162.56 cm); Pain 5/10; 20:51 Pulse 102; kd3 22:27 BP 130 / 82; Pulse 99; Resp 20; Pulse Ox 100% ; mb9 20:50 Body Mass Index 30.90 (81.65 kg, 162.56 cm) kd3 ED Course: 20:48 Patient arrived in ED. ag3 20:53 Triage completed. kd3 20:53 Everett Crowell PA is PHCP. cp 20:53 Arm band placed on right wrist. kd3 20:54 Everett Zaman MD is Attending Physician. cp 21:40 Inserted saline lock: 22 gauge in right antecubital area, using aseptic technique. mb9 Blood collected. 21:40 No provider procedures requiring assistance completed. mb9 21:56 Chelsie Batista, RN is Primary Nurse. mb9 21:56 BMP Sent. mb9 21:56 CBC with Diff Sent. mb9 22:44 Toribio Schwab MD is Referral Physician. cp 23:14 IV discontinued, intact, bleeding controlled, No redness/swelling at site. Pressure mb9 dressing applied. Administered Medications: 22:30 Drug: Ketorolac 30 mg Route: IVP; Site: right antecubital; mb9 22:53 Follow up: Response: No adverse reaction mb9 22:31 Drug: Bactrim (trimethoprim-sulfamethoxazole) (160 mg-800 mg (DS) 1 tablet Route: PO; mb9 22:54 Follow up: Response: No adverse reaction mb9 22:46 Drug: Clindamycin 900 mg Route: IVPB; Infused Over: 30 mins; Site: right antecubital; mb9 23:14 Follow up: Response: No adverse reaction; IV Status: Completed infusion mb9 Medication: 21:57 VIS not applicable for this client. mb9 Outcome: 22:46 Discharge ordered by . cp 23:14 Discharged to home ambulatory. mb9 23:14 Condition: stable 23:14 Discharge instructions given to patient, Instructed on discharge instructions, follow up and referral plans. Demonstrated understanding of instructions, follow-up care, medications, Prescriptions given X 2. 23:14 Patient left the ED. mb9 Signatures: Everett Crowell PA PA cp Ingrid Porter Kyli, RN RN kd3 Chelsie Batista, RN RN mb9
--- NOTE | 2022-11-14 22:46 | EDPHYS ---
Physician Documentation [facility] Name: Kristine Londono Age: 37 yrs Sex: Female : 1985 Arrival Date: 11/14/2022 Time: 20:48 Bed 10 Private MD: ED Physician Everett Zaman HPI: 11/14 21:45 This 37 yrs old Female presents to ER via Ambulatory with complaints of RIB PAIN. cp 21:45 The patient or guardian reports chest pain that is located primarily in the right cp lateral breast. The pain does not radiate. The chest pain is described as aching. Duration: The patient or guardian reports a single episode, that is still ongoing. 21:45 Spoke with patient earlier today to discuss radiologist interpretation of right breast cp US performed last night that showed concern for abscess. Patient returns to ED for reevaluation. Denies fever. 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 - Social history:: Smoking status: Patient denies any tobacco usage or history of. ROS: 21:50 Constitutional: Negative for body aches, chills, fever, poor PO intake. cp 21:50 Eyes: Negative for injury, pain, redness, and discharge. cp 21:50 ENT: Negative for drainage from ear(s), ear pain, sore throat, difficulty swallowing, difficulty handling secretions. 21:50 Cardiovascular: Negative for edema, palpitations. 21:50 Respiratory: Negative for cough, wheezing. 21:50 Abdomen/GI: Negative for abdominal pain, nausea, vomiting, and diarrhea. 21:50 Back: Negative for pain at rest, pain with movement. 21:50 Skin: Positive for of the lateral side right breast, pain. 21:50 All other systems are negative. Exam: 21:55 Constitutional: The patient appears in no acute distress, alert, awake, cp non-diaphoretic, non-toxic, well developed, well nourished. 21:55 Head/Face: Normocephalic, atraumatic. cp 21:55 Eyes: Periorbital structures: appear normal, Conjunctiva: normal, no exudate, no injection, Sclera: no appreciated abnormality, Lids and lashes: appear normal, bilaterally. 21:55 ENT: External ear(s): are unremarkable, Nose: is normal, Mouth: Lips: moist, Oral mucosa: pink and intact, moist, Posterior pharynx: Airway: no evidence of obstruction, patent. 21:55 Chest/axilla: Inspection: normal, Axilla: lymphadenopathy, is not appreciated, Breasts: palpable, tender mass lateral right breast with no overlying skin erythema, no drainage from breast. 21:55 Cardiovascular: Rate: tachycardic, Rhythm: regular, Edema: is not appreciated, JVD: is not appreciated. 21:55 Respiratory: the patient does not display signs of respiratory distress, Respirations: normal, no use of accessory muscles, no retractions, labored breathing, is not present, Breath sounds: are clear throughout, no decreased breath sounds, no stridor, no wheezing. 21:55 Abdomen/GI: Exam negative for discomfort, distension, guarding, Inspection: abdomen appears normal. 21:55 Neuro: Orientation: to person, place \T\ time. Mentation: is normal. Vital Signs: 20:50 BP 128 / 81; Pulse 19; Resp 19; Temp 98.9(O); Pulse Ox 100% ; Weight 81.65 kg; Height 5 kd3 ft. 4 in. (162.56 cm); Pain 5/10; 20:51 Pulse 102; kd3 22:27 BP 130 / 82; Pulse 99; Resp 20; Pulse Ox 100% ; mb9 20:50 Body Mass Index 30.90 (81.65 kg, 162.56 cm) kd3 MDM: 20:58 Patient medically screened. mitch 22:00 Differential diagnosis: chest wall pain, breast carcinoma, abscess, cellulitis, breast cp cyst. 22:28 Data reviewed: vital signs, nurses notes, lab test result(s), report from breast US cp performed 11-13-2022. ED course: review of right breast US report dated 11-13-2022 shows concern for subcutaneous abscess. Consult with DR Schwab \[id number]. Will treat with oral Bactrim and Clindamycin and discharge to home to f/u with DR Schwab. 22:45 Management of patient was discussed with the following: Order Tracer: DR Schwab. cp 22:45 I considered the following discharge prescriptions or medication management in the cp emergency department Medications were administered in the Emergency Department. See MAR. Test considered but Not performed: CT: chest. Counseling: I had a detailed discussion with the patient and/or guardian regarding: the historical points, exam findings, and any diagnostic results supporting the discharge/admit diagnosis, lab results, radiology results, the need for outpatient follow up, a general surgeon, to return to the emergency department if symptoms worsen or persist or if there are any questions or concerns that arise at home. 11/14 21: Order name: CBC with Diff; Complete Time: 22:13 cp 11/14 22:14 Interpretation: Normal except: HGB 10.3; HCT 33.1; MCV 71.7; MCH 22.3; MCHC 31.2; RDW cp 17.7; EOSINOPHIL % 7.8; EOSA 0.7. 11/14 21:31 Order name: BMP; Complete Time: 22:13 cp 11/14 21:54 Order name: Urine Dipstick-Ancillary; Complete Time: 22:13 EDMS 11/14 21:58 Order name: Urine --Ancillary (enter results); Complete Time: 22:13 mw2 11/14 21:31 Order name: IV; Complete Time: 21:56 cp 11/14 21:31 Order name: Urine Test (obtain specimen); Complete Time: 21:56 cp Administered Medications: 22:30 Drug: Ketorolac 30 mg Route: IVP; Site: right antecubital; mb9 22:53 Follow up: Response: No adverse reaction mb9 22:31 Drug: Bactrim (trimethoprim-sulfamethoxazole) (160 mg-800 mg (DS) 1 tablet Route: PO; mb9 22:54 Follow up: Response: No adverse reaction mb9 22:46 Drug: Clindamycin 900 mg Route: IVPB; Infused Over: 30 mins; Site: right antecubital; mb9 23:14 Follow up: Response: No adverse reaction; IV Status: Completed infusion mb9 Disposition Summary: 11/14/22 22:46 Discharge Ordered Location: Home cp Problem: new cp Symptoms: have improved cp Condition: Stable cp Diagnosis - Right Lateral Breast Abscess cp Followup: cp - With: Toribio Schwab MD - When: 1 - 2 days - Reason: Recheck today's complaints Discharge Instructions: - Discharge Summary Sheet cp - Skin Abscess cp Forms: - Medication Reconciliation Form cp - Thank You Letter cp - Antibiotic Education cp - Prescription Opioid Use cp Prescriptions: - Clindamycin HCl 300 mg Oral Capsule - take 1 capsule by ORAL route every 6 hours for 10 days; 40 capsule; Refills: 0, cp Product Selection Permitted - Bactrim DS 800-160 mg Oral Tablet - take 1 tablet by ORAL route every 12 hours for 10 days; 20 tablet; Refills: 0, cp Product Selection Permitted Signatures: Dispatcher [employer] EDMS Everett Zaman MD MD cha Page, Corey, PA PA cp Doucette, Kyli RN RN kd3 Chelsie Batista RN RN mb9
[2022-11-14 23:21] VITALS: TEMP 98.9; O2SAT 100
[2022-11-14 23:24] VITALS: BP 130/82
== END 2022-11-14 23:14 | disposition home or self-care (01) ==
LOC: ER 20:45
DX: N61.1 Abscess of the breast and nipple (principal)
CPT/HCPCS: 36415; 80048; 81003; 81025; 85025